=== PATIENT | female | born 1965 | race Caucasian/White ===

== ENCOUNTER 2018-04-26 14:00 | Inpatient (IN) | payer OTHER, SELFPAY ==
[2018-04-26 14:53] LABS: Hemoglobin 16.3 g/dL (12.0-16.0); Mean Corpuscular HGB CONC 32.9 g/dL (32.0-36.0); Mean Corpuscular Hemoglobin 28.8 pg (27.0-31.0); Mean Corpuscular Volume 87.5 fL (78.0-98.0); Mean Platelet Volume 11.5 fL (7.4-10.4); Platelet Count 287 thou/uL (130-400); RBC Distribution Width 14.1 % (11.5-14.5); Red Blood Cell (RBC) Count 5.66 mill/uL (4.20-5.40)
[2018-04-26 15:07] LABS: Lymphocytes 12 % (21-51); MDiff Complete? YES; Monocytes 4 % (0-10); Neutrophil 84 % (42-75); PLT Morphology Comment Appears Adequate; RBC Morphology Normal; White Blood Cell (WBC) Count 19.2 thou/uL (4.8-10.8)
[2018-04-26 15:29] LABS: ALT (SGPT) 57 U/L (8-55); AST (SGOT) 36 U/L (5-34); Albumin 4.3 g/dL (3.5-5.0); Alkaline Phosphatase 286 U/L (40-150); Anion Gap 20 mmol/L (10-20); BUN (Urea Nitrogen) 16 mg/dL (9.8-20.1); Bilirubin, Total 1.5 mg/dL (0.2-1.2); Calc. Creatinine Clearance 0 mL/min (70-130); Calcium 10.3 mg/dL (7.8-10.44); Carbon Dioxide 23 mmol/L (22-29); Chloride 91 mmol/L (98-107); Estimated GFR-MDRD 53; Globulin 4.5 g/dL (2.4-3.5); Glucose 486 mg/dL (70-105); Lipase 9 U/L (8-78); Potassium 3.8 mmol/L (3.5-5.1); Protein, Total 8.8 g/dL (6.0-8.3); Sodium 130 mmol/L (136-145)
[2018-04-26] MEDS ORDERED: Morphine 2 MG/ML SYRINGE ONE ×2 (15:29→17:02)
[2018-04-26] MEDS ORDERED: Ondansetron PF 4 MG/2 ML Vial ONE (15:29)
[2018-04-26 16:17] LABS: Troponin I 0.012 ng/mL (< 0.028)
[2018-04-26] MEDS ORDERED: Iopamidol 370 76% 100 ML VIAL ONE (16:19)
[2018-04-26] MEDS ORDERED: Piperacillin/Tazobactam 4.5 GM VIAL ONE (17:02)
--- NOTE | 2018-04-26 17:13 | CT ---
CT OF THE ABDOMEN AND PELVIS WITH IV CONTRAST: 04/26/18 INDICATION: History of abdominal pain with history of ulcers, problems with gallbladder, problems with pancreas w ith aching burning abdominal pain since Sunday with nausea, vomiting, diarrhea. FINDINGS: There is severe fatty infiltration of the liver. There is prominent dilatation of the gallbladder wit h gallbladder wall thickening and pericholecystic inflammatory stranding. The pancreas appears within normal limits. The adrenal glands and kidneys appear within normal limits. Spleen is normal appearin g. No drainable fluid collection is evident. The bladder, rectum and perirectal soft tissues are unre markable. There are bilateral tubal ligation clips. There is a few scattered colonic diverticula. The re is a normal retrocecal appendix. No acute osseous abnormality is evident. IMPRESSION: 1. Findings highly suspicious for acute cholecystitis. Right upper quadrant ultrasound may be he lpful for additional evaluation. Recommend correlation with the clinical exam. 2. Severe fatty liver. 3. Colonic diverticulosis. POS: [facility]
[2018-04-26 17:21] LABS: Bilirubin Negative (Negative); Blood, Urine Trace (Negative); Clarity CLEAR (Clear); Glucose, Urine (Dipstick) >=1000 mg/dL (Negative); Leukocyte Negative (Negative); Nitrite Negative (Negative); Protein, Urine (Dipstick) 30 mg/dL (Neg-Trace); Urobilinogen 0.2 mg/dL (0.2-1.0); pH, Urine 5.5 (5.0-9.0)
[2018-04-26 17:22] LABS: Specific Gravity, Urine 1.044 (1.002-1.036)
[2018-04-26 17:23] LABS: Bacteria/HPF None Seen HPF (None Seen); Hyaline Casts/LPF 0-3 HYALINE CAST LPF (0-3 Hyaline); Pathc Cast-AUWi Flag 0.14 (0-2.49); RBC/HPF 0-3 HPF (0-3); Squamous Epithelial 0-3 HPF (0-3); WBC/HPF 21-50 HPF (0-3)
[2018-04-26] MEDS ORDERED: hydrALAZINE 20 MG/ML VIAL SLOW IVP PRN (18:36)
[2018-04-26] MEDS ORDERED: Dextrose 5% in Water 1,000 ML IV PRN (18:37)
[2018-04-26] MEDS ORDERED: Dextrose 50% Abboject 50 ML SYRINGE SLOW IVP PRN (18:37)
[2018-04-26] MEDS ORDERED: Morphine 2 MG/ML SYRINGE SLOW IVP PRN (18:39)
[2018-04-26] MEDS ORDERED: Senokot S 8.6-50 MG TAB PO PRN (19:41)
[2018-04-26] MEDS ORDERED: Bisacodyl 5 MG TAB PO PRN (19:41)
[2018-04-26] MEDS ORDERED: Acetaminophen 325 MG TAB PO PRN (19:41)
[2018-04-26 20:02] LABS: INR-International Normal Ratio 1.1; PTT 31.3 SEC (22.9-36.1); Prothrombin Time 14.2 SEC (12.0-14.7)
--- NOTE | 2018-04-26 20:06 | ULT ---
RIGHT UPPER QUADRANT ULTRASOUND: History: Right upper quadrant pain. Follow of from CT. Comparison: CT abdomen/pelvis 04-26-18. Technique: Multiplanar grayscale and color doppler images were obtained in a right upper quadrant abd ominal ultrasound. FINDINGS: The liver demonstrates increased echogenicity without focal lesions or intrahepatic ductal dilatation . The gallbladder contains multiple shadowing stones and is distended. There is slight gallbladder wa ll thickening and possibly a small amount of pericholecystic fluid. The common bile duct is normal me asuring 6 mm. The pancreas cannot be visualized. The right kidney is normal in echogenicity without hydronephrosis or calculus and measures 13.5 cm in length. IMPRESSION: 1. Cholelithiasis with finding suggesting acute cholecystitis. 2. Fatty liver. POS: [facility]
[2018-04-26] MEDS: Morphine 4 MG/ML VIAL SLOW IVP PRN (20:14)
[2018-04-26] MEDS: Pantoprazole 40 MG VIAL IVP SCH (20:14)
[2018-04-26] MEDS: Ondansetron PF 4 MG/2 ML Vial IVP PRN (20:15)
[2018-04-26] MEDS: Sodium Chloride 0.9% 1,000 ML IV SCH (20:16)
[2018-04-26] MEDS: HumaLOG 300 UNITS/3 ML VIAL SC PRN (21:28)
[2018-04-26 22:53] VITALS: BMI 34.8
[2018-04-27] MEDS: Piperacillin/Tazobactam 3.375 GM in Sodium Chloride 0.9% 100 ML IVPB SCH ×5 (00:23→23:59)
[2018-04-27] MEDS: Morphine 4 MG/ML VIAL SLOW IVP PRN ×4 (00:24→20:51)
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
[2018-04-27] MEDS: Sodium Chloride 0.9% 1,000 ML IV SCH ×3 (04:26→22:30)
[2018-04-27 05:54] LABS: #Lymphocytes 1.1 thou/uL (1.20-3.40); #Monocytes 1.1 thou/uL (0.11-0.59); %Basophils 0.2 % (0.0-1.0); %Eosinophils 0.3 % (0.0-10.0); %Lymphocytes 7.7 % (21.0-51.0); %Monocytes 7.5 % (0.0-10.0); %Neutrophils 84.3 % (42.0-75.0); Hemoglobin 13.7 g/dL (12.0-16.0); Mean Corpuscular HGB CONC 33.3 g/dL (32.0-36.0); Mean Corpuscular Hemoglobin 28.9 pg (27.0-31.0); Mean Corpuscular Volume 86.9 fL (78.0-98.0); Mean Platelet Volume 8.4 fL (7.4-10.4); Platelet Count 263 thou/uL (130-400); RBC Distribution Width 11.9 % (11.5-14.5); Red Blood Cell (RBC) Count 4.73 mill/uL (4.20-5.40); White Blood Cell (WBC) Count 14.3 thou/uL (4.8-10.8)
[2018-04-27 06:21] LABS: ALT (SGPT) 306 U/L (8-55); AST (SGOT) 503 U/L (5-34); Albumin 3.4 g/dL (3.5-5.0); Alkaline Phosphatase 496 U/L (40-150); Anion Gap 17 mmol/L (10-20); BUN (Urea Nitrogen) 15 mg/dL (9.8-20.1); Bilirubin, Total 5.6 mg/dL (0.2-1.2); Calc. Creatinine Clearance 128 mL/min (70-130); Calcium 9.2 mg/dL (7.8-10.44); Carbon Dioxide 21 mmol/L (22-29); Chloride 98 mmol/L (98-107); Estimated GFR-MDRD 86; Globulin 3.8 g/dL (2.4-3.5); Glucose 285 mg/dL (70-105); Potassium 3.4 mmol/L (3.5-5.1); Protein, Total 7.2 g/dL (6.0-8.3); Sodium 133 mmol/L (136-145)
[2018-04-27] MEDS: Pantoprazole 40 MG VIAL IVP SCH ×2 (08:24→20:51)
[2018-04-27] MEDS ORDERED: Lidocaine 1% PF 5 ML VIAL ONE (10:48)
[2018-04-27] MEDS ORDERED: PROPOFOL 200 MG/20 ML VIAL ONE (10:48)
[2018-04-27] MEDS ORDERED: Glycopyrrolate 0.2 MG/ML 5 ML SYRINGE ONE (10:48)
[2018-04-27] MEDS ORDERED: Ondansetron PF 4 MG/2 ML Vial ONE (10:48)
[2018-04-27] MEDS ORDERED: Dexamethasone 20 MG/5 ML VIAL ONE (10:48)
[2018-04-27] MEDS ORDERED: Iothalamate Meglumine 60% 50 ML VIAL FS ONE (12:36)
[2018-04-27] MEDS ORDERED: Indomethacin 50 MG SUPP ONE (12:42)
[2018-04-27] MEDS ORDERED: Fentanyl 100 MCG/2 ML VIAL ONE (12:45)
--- NOTE | 2018-04-27 12:46 | CON ---
DATE OF CONSULTATION: CHIEF COMPLAINT: Abdominal pain. HISTORY OF PRESENT ILLNESS: This is a 52-year-old woman with past medical history significant for irregular heartbeat, hypertension, diabetes mellitus type 2, and enlarged heart, presenting with abdominal pain, which has been ongoing for some time now. The patient does have multiple episodes of nausea and vomiting due to this abdominal pain and discomfort. She was told couple of years ago that she had gallbladder and now the patient has come into the emergency room due to elevated white count as well as liver function tests and an ultrasound confirming cholelithiasis with gallbladder wall thickening and pericholecystic fluid. At this point, we have been consulted to medically manage the patient before the patient could be able to have cholecystectomy. The patient denies any fever, nausea, or vomiting at this time, but endorses abdominal pain with movement. Of note, the patient states that she has a history of irregular heartbeat and she has been given medication, but she does not take her medications because she does not have an insurance to pay for her medications, so the patient has been very noncompliant. PAST MEDICAL HISTORY: Enlarged heart, hypertension, diabetes mellitus, and irregular heartbeat. PAST SURGICAL HISTORY: The patient has no significant past medical history except for tubal ligation. SOCIAL HISTORY: The patient quit smoking tobacco 20 years ago, but she states she smoked 2-1/2 pack a day. The patient denies any illicit drug use. The patient denies any alcohol use. The patient lives at home with 2 grandchildren. FAMILY HISTORY: Reviewed, noncontributory to this visit. MEDICATIONS: At present, does not take any medications. The patient states that she does not fill her medications when they are prescribed. ALLERGIES: NO KNOWN DRUG ALLERGIES. REVIEW OF SYSTEMS: Positive for abdominal pain, occasional nausea, otherwise as documented in the HPI. All other systems were reviewed and are negative. PHYSICAL EXAMINATION: VITAL SIGNS: Blood pressure is 132/72, pulse of 109, respiratory rate of 21, and O2 saturation is 96%. GENERAL: The patient is lying in bed, does not appear to be in any acute distress. The patient is able to speak in full sentences. HEENT: Normocephalic and atraumatic. Pupils are equally round and reactive to light. Extraocular movements are intact. No scleral icterus. No conjunctival pallor. Mucous membranes are moist. NECK: Trachea is midline. Full range of motion. Supple. No JVD. LUNGS: Clear to auscultation bilaterally. No wheezing, no rales, no rhonchi is appreciated. CARDIAC: Positive S1 and S2. Regular rate and rhythm. No murmurs. No gallops. No rubs appreciated. ABDOMEN: The patient has tenderness with palpation in the abdomen. The patient does have positive bowel sounds in all quadrants. No peritoneal signs. No rigidity. No guarding. EXTREMITIES: The patient has 5/5 upper extremity strength and 5/5 lower extremity strength with good pulses and no edema noted. NEURO: Cranial nerves II through XII grossly intact. No neurologic deficits noted. SKIN: Warm, dry, and intact. PSYCH: Normal affect. Alert and oriented x3. RADIOLOGIC DATA: A 12-lead EKG shows sinus tachycardia. CT of the abdomen and pelvis shows possible acute cholecystitis. LABORATORY DATA: WBCs 19.2, hemoglobin is 16.3, hematocrit is 49.6, and platelet count is 287. PT is 14.2, INR 1.1, and PTT 31.3. Sodium is 130, potassium is 3.8, chloride is 91, BUN is 16, creatinine is 1.07, glucose is 486, total bilirubin is 1.5, AST is 36, ALT is 57, and alkaline phosphatase is 286. Troponin is 0.012 and BNP 34. Urinalysis is negative. ASSESSMENT AND PLAN: 1. This is a 52-year-old female, who is noncompliant with her medications, presenting for abdominal pain secondary to acute cholecystitis. At this point, the patient has been scheduled to have surgery tomorrow. We have been consulted to medically clear the patient. Upon further questioning, the patient is able to climb two flight of stairs without any difficulties. Therefore, the patient can be able to have the surgery; however, the patient states that she has history of irregular heartbeat, which is a little concern as this patient is noncompliant with her medications, we have consulted Cardiology for cardiac clearance. The patient will benefit from getting an echo and if echo is normal and Cardiology clears the patient, then the patient can be able to get the surgery. We will continue to monitor the patient closely. 2. Diabetes mellitus type 2, uncontrolled. At this point, we will continue the patient on insulin sliding scale and we will try and get the patient's blood sugars between 140 to 180. 3. History of hypertension, well controlled. The patient does not take her medications. We will control the patient's blood pressure in the hospital. 4. Deep venous thrombosis/gastrointestinal prophylaxis. Job ID: [id number]
[2018-04-27] MEDS ORDERED: Promethazine HCl 25 MG/ML VIAL IM PRN (13:32)
[2018-04-27] MEDS ORDERED: Ondansetron HCl/PF 4 MG/2 ML Vial IVP PRN (13:32)
[2018-04-27] MEDS ORDERED: Promethazine HCl 25 MG/ML VIAL SLOW IVP PRN (13:32)
--- NOTE | 2018-04-27 13:32 | PDOC.PN ---
- Subjective Encounter Start Date: 04/27/18 Encounter Start Time: 13:28 Subjective: sleepy S/P ERCP - Objective MAR Reviewed: Yes Vital Signs & Weight: Vital Signs (12 hours) Temp Pulse Resp BP Pulse Ox 04/27/18 08:00 94 L 04/27/18 07:48 98.5 F 89 22 H 130/74 94 L 04/27/18 03:42 98.5 F 93 16 145/80 H 94 L Weight Weight 196 lb 11.2 oz I&O: 04/26/18 04/27/18 04/28/18 06:59 06:59 06:59 Intake Total 1440 Balance 1440 Result Diagrams: 04/27/18 04:55 04/27/18 04:55 Additional Labs: Accuchecks 04/27/18 04/27/18 04/26/18 06:21 01:22 23:14 POC Glucose 268 H 293 H 319 H 04/26/18 19:47 POC Glucose 346 H Phys Exam - Physical Examination HEENT: PERRLA, moist MMs, sclera anicteric, TM's clear, oral pharynx no lesions , 2+ tonsils Neck: no nodes, no JVD, supple, full ROM Respiratory: no wheezing, no rales, no rhonchi Cardiovascular: RRR, no significant murmur, no rub Gastrointestinal: soft, non-tender, positive bowel sounds Musculoskeletal: no edema, pulses present Neurological: non-focal, normal sensation, moves all 4 limbs Dx/Plan (1) Cholecystitis Code(s): K81.9 - CHOLECYSTITIS, UNSPECIFIED Status: Acute Comment: S/P ERCP , plans for cholecystectomy in am (2) Diabetes Code(s): E11.9 - TYPE 2 DIABETES MELLITUS WITHOUT COMPLICATIONS Status: Chronic Qualifiers: Diabetes mellitus type: 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
[2018-04-27] MEDS ORDERED: Dextrose 5% in Water 1,000 ML IV PRN (13:34)
[2018-04-27] MEDS ORDERED: Dextrose 50% Abboject 50 ML SYRINGE SLOW IVP PRN (13:34)
[2018-04-27] MEDS ORDERED: HumaLOG 300 UNITS/3 ML VIAL SC PRN (13:34)
--- NOTE | 2018-04-27 16:02 | CON ---
DATE OF CONSULTATION: HISTORY OF PRESENT ILLNESS: The patient is a 52-year-old female, who was in her normal state of health until few days prior to admission when she developed significant epigastric and right upper quadrant pain. She has had similar pains before and has been seen in [place], [place] and diagnosed with some pancreatic disorder, but nothing was done for the patient. She has had some nausea and vomiting. She reports a 25-pound weight loss. She notes her urine has been dark. She reports she has had an ulcer since the age of 12. PAST MEDICAL HISTORY: Includes hypertension, diabetes. PAST SURGICAL HISTORY: She denies any prior surgery. SOCIAL HISTORY: She is a former smoker. Does not drink. FAMILY HISTORY: Negative of GI or liver disease. MEDICATIONS: There is a mention in the medical record about; 1. Metformin. 2. Tramadol. 3. Ibuprofen. 4. Acetaminophen. However, she denies any medications. ALLERGIES: NO KNOWN ALLERGIES. REVIEW OF SYSTEMS: Ten systems reviewed and were negative except for above. PHYSICAL EXAMINATION: GENERAL: Shows an overweight female, in no acute distress. VITAL SIGNS: Temperature 98.5, pulse 89, respiratory rate 22, blood pressure 130/74. HEENT: Poor dentition. NECK: Supple. CHEST: Clear. CARDIOVASCULAR: Regular rate and rhythm. ABDOMEN: Soft, tender in the right upper quadrant without rebound or guarding. Bowel sounds are present, normoactive. RECTAL: Deferred. EXTREMITIES: Normal. LABORATORY DATA: Laboratories show sodium 133, potassium 3.4, CO2 21, glucose 285, total bilirubin 5.6, AST of 503, ALT of 306, alk phos of 496, lipase of 9. White blood cell count 14.3, hemoglobin 13.7, hematocrit 41.1. Abdominal ultrasound showed cholelithiasis and possible cholecystitis, fatty liver. Abdominal and pelvic CT shows acute cholecystitis, severe fatty liver, and diverticulosis. ASSESSMENT: 1. Acute cholecystitis. 2. Probable choledocholithiasis. RECOMMENDATIONS: 1. ERCP. 2. Laparoscopic cholecystectomy. 3. The risks and potential complications of ERCP were discussed with the patient including pancreatitis, perforation, bleeding, and . The patient understands these risks and alternatives and wishes to proceed. Job ID: [id number]
[2018-04-27] MEDS: HumaLOG 300 UNITS/3 ML VIAL SC PRN (16:29)
[2018-04-27] MEDS: Ondansetron PF 4 MG/2 ML Vial IVP PRN (21:02)
[2018-04-28] MEDS: Morphine 4 MG/ML VIAL SLOW IVP PRN ×2 (01:40→05:05)
[2018-04-28] MEDS: Sodium Chloride 0.9% 1,000 ML IV SCH ×3 (05:08→22:45)
[2018-04-28] MEDS: Piperacillin/Tazobactam 3.375 GM in Sodium Chloride 0.9% 100 ML IVPB SCH ×4 (05:08→23:55)
[2018-04-28] MEDS ORDERED: Fentanyl 100 MCG/2 ML VIAL ONE ×3 (06:55→12:24)
[2018-04-28 07:06] LABS: ALT (SGPT) 513 U/L (8-55); AST (SGOT) 607 U/L (5-34); Albumin 3.2 g/dL (3.5-5.0); Alkaline Phosphatase 529 U/L (40-150); Bilirubin, Direct 3.8 mg/dL (0.1-0.3); Bilirubin, Total 4.7 mg/dL (0.2-1.2); Protein, Total 6.8 g/dL (6.0-8.3)
[2018-04-28] MEDS: Ondansetron PF 4 MG/2 ML Vial IVP PRN (07:09)
[2018-04-28] MEDS ORDERED: Iothalamate Meglumine 60% 50 ML VIAL FS ONE (07:34)
[2018-04-28] MEDS ORDERED: Bupivacaine/Epinephrine 0.25% 30 ML VIAL ONE (07:34)
[2018-04-28] MEDS: Pantoprazole 40 MG VIAL IVP SCH ×2 (08:28→19:53)
[2018-04-28] MEDS ORDERED: Ondansetron HCl/PF 4 MG/2 ML Vial IVP PRN (10:26)
[2018-04-28] MEDS ORDERED: Promethazine HCl 25 MG/ML VIAL SLOW IVP PRN (10:26)
[2018-04-28] MEDS ORDERED: Promethazine HCl 25 MG/ML VIAL IM PRN (10:26)
[2018-04-28] MEDS ORDERED: Metoprolol Tartrate 5 MG/5 ML VIAL ONE (10:53)
[2018-04-28] MEDS ORDERED: PROPOFOL 200 MG/20 ML VIAL ONE (10:53)
[2018-04-28] MEDS ORDERED: Ondansetron PF 4 MG/2 ML Vial ONE (10:53)
[2018-04-28] MEDS ORDERED: Dexamethasone 20 MG/5 ML VIAL ONE (10:53)
[2018-04-28] MEDS ORDERED: Lidocaine 1% PF 5 ML VIAL ONE (10:53)
[2018-04-28] MEDS ORDERED: Glycopyrrolate 0.2 MG/ML 5 ML SYRINGE ONE (10:53)
[2018-04-28] MEDS ORDERED: HYDROcodone/Acetaminophen 5/325 mg Tablet PO PRN (12:27)
--- NOTE | 2018-04-28 12:33 | PDOC.PN ---
- Subjective Encounter Start Date: 04/28/18 Encounter Start Time: 12:32 Subjective: Awaiting Lap bari - Objective full resuscitation MAR Reviewed: Yes Vital Signs & Weight: Vital Signs (12 hours) Temp Pulse Resp BP Pulse Ox 04/28/18 07:07 98.3 F 77 20 143/77 H 94 L 04/28/18 03:00 98.3 F 71 16 146/81 H 98 Weight Admit Weight 196 lb 11.2 oz Weight 196 lb 11.2 oz I&O: 04/27/18 04/28/18 04/29/18 06:59 06:59 06:59 Intake Total 2640 Balance 2640 Result Diagrams: 04/27/18 04:55 04/27/18 04:55 Additional Labs: Accuchecks 04/28/18 04/28/18 04/27/18 08:01 05:36 21:07 POC Glucose 231 H 251 H 304 H 04/27/18 15:37 POC Glucose 248 H Phys Exam - Physical Examination HEENT: PERRLA, moist MMs, sclera anicteric, TM's clear, oral pharynx no lesions , 2+ tonsils Neck: no nodes, no JVD, supple, full ROM Respiratory: no wheezing, no rales, no rhonchi, clear to auscultation bilateral Cardiovascular: RRR, no significant murmur Gastrointestinal: soft, no distention mildly tender right upper quadrant Musculoskeletal: no edema, pulses present Neurological: non-focal, normal sensation, moves all 4 limbs Skin: no rash, normal turgor, cap refill <2 seconds Dx/Plan (1) Cholecystitis Code(s): K81.9 - CHOLECYSTITIS, UNSPECIFIED Status: Acute Comment: S/P ERCP , plans for cholecystectomy today (2) Diabetes Code(s): E11.9 - TYPE 2 DIABETES MELLITUS WITHOUT COMPLICATIONS Status: Chronic Qualifiers: Diabetes mellitus type: type 2 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 ERCP WNL. - Plan cont current plan of care, continue antibiotics * .
[2018-04-28] MEDS ORDERED: Dextrose 5% in Water 1,000 ML IV PRN (12:35)
[2018-04-28] MEDS ORDERED: Dextrose 50% Abboject 50 ML SYRINGE SLOW IVP PRN (12:35)
--- NOTE | 2018-04-28 13:58 | RAD ---
CHOLANGIOGRAM INTRAOPERATIVE TWO VIEWS: 04/28/2018 HISTORY: A 52-year-old female undergoing a cholecystectomy for cholelithiasis and acute cholecystitis. FINDINGS: Contrast injection into cystic duct stump. The common bile duct is mildly dilated. The common hepat ic duct is borderline dilated, with a questionable ill defined filling defect. The left and right he patic ducts are mildly dilated. There is contrast material in the duodenum. IMPRESSION: 1. Mild ectasia of the biliary tree. 2. Questionable moderate sized filling defect in the superior portion of the common hepatic duct. U ncertain whether this is artifact or real. POS: [facility]
[2018-04-28] MEDS: HYDROcodone/Acetaminophen 5/325 mg Tablet PO PRN ×2 (14:10→23:55)
[2018-04-28] MEDS: HumaLOG 300 UNITS/3 ML VIAL SC PRN ×3 (14:20→20:56)
[2018-04-28] MEDS: Morphine 2 MG/ML SYRINGE SLOW IVP PRN ×2 (16:30→19:57)
[2018-04-28] MEDS: Carvedilol 3.125 MG TAB PO SCH (17:35)
[2018-04-29] MEDS: Sodium Chloride 0.9% 1,000 ML IV SCH ×4 (00:07→16:13)
[2018-04-29] MEDS: HYDROcodone/Acetaminophen 5/325 mg Tablet PO PRN ×5 (04:07→20:28)
[2018-04-29] MEDS: Piperacillin/Tazobactam 3.375 GM in Sodium Chloride 0.9% 100 ML IVPB SCH ×3 (06:15→16:16)
[2018-04-29] MEDS: HumaLOG 300 UNITS/3 ML VIAL SC PRN ×3 (06:17→16:18)
[2018-04-29 06:49] LABS: ALT (SGPT) 404 U/L (8-55); AST (SGOT) 269 U/L (5-34); Albumin 2.7 g/dL (3.5-5.0); Alkaline Phosphatase 436 U/L (40-150); Anion Gap 13 mmol/L (10-20); BUN (Urea Nitrogen) 13 mg/dL (9.8-20.1); Bilirubin, Total 1.8 mg/dL (0.2-1.2); Calc. Creatinine Clearance 144 mL/min (70-130); Calcium 8.3 mg/dL (7.8-10.44); Carbon Dioxide 21 mmol/L (22-29); Chloride 103 mmol/L (98-107); Estimated GFR-MDRD Greater than 90; Globulin 3.2 g/dL (2.4-3.5); Glucose 254 mg/dL (70-105); Lipase 14 U/L (8-78); Potassium 3.7 mmol/L (3.5-5.1); Protein, Total 5.9 g/dL (6.0-8.3); Sodium 133 mmol/L (136-145)
--- NOTE | 2018-04-29 07:48 | OP ---
DATE OF PROCEDURE: 04/27/2018 PREOPERATIVE DIAGNOSIS: Abnormal liver function tests with acute cholecystitis, suspicious for choledocholithiasis. DESCRIPTION OF PROCEDURE: After informed consent was obtained, the patient was placed in left lateral decubitus position. Anesthesia was administered by the Anesthesia Department. Side-viewing endoscope was inserted into esophagus under direct visualization with ease and passed to the second portion of the duodenum with ease. Second portion of the duodenum was normal. No mucosal abnormalities were noted. The Tapered-tip cannula was inserted into the common bile duct and cholangiogram revealed no obvious filling defects. A sphincterotomy was performed and a hedrick of very old dark bile was noted. The duct was swept with a 12 mm balloon. ASSESSMENT: Probable choledocholithiasis - no obvious stones or filling defects were noted, but there was a large amount of old bile that was seen coming from the duct after sphincterotomy. RECOMMENDATIONS: 1. Repeat LFTs. 2. Proceed with cholecystectomy tomorrow. Job ID: [id number]
--- NOTE | 2018-04-29 07:50 | PRG ---
DATE OF SERVICE: 04/28/2018 SUBJECTIVE: The patient is complaining of pain. Had her surgery this morning. OBJECTIVE: VITAL SIGNS: Temperature is 98.6, pulse 91, respiratory rate 20, blood pressure 152/86. CHEST: Clear. CARDIOVASCULAR: Regular rate and rhythm. ABDOMEN: Tender. LABORATORY DATA: Laboratory shows a total bilirubin for 4.7, AST of 607, ALT of 513, alkaline phosphatase of 529. ASSESSMENT: Obstructive jaundice - I am not sure if this was ampullary stenosis or retained stone. After sphincterotomy, she had a large amount of dark bowel; however, LFTs have not improved. RECOMMENDATIONS: Recheck LFTs in a.m. Job ID: [id number]
--- NOTE | 2018-04-29 07:51 | CON ---
DATE OF CONSULTATION: HISTORY OF PRESENT ILLNESS: Jasmin Gore is a 52-year-old white female admitted with acute cholecystitis and has undergone laparoscopic cholecystectomy today. She was admitted here in April of 2011 with bronchitis and irregular heart beat. She was found to have a nonischemic cardiomyopathy with ejection fraction of approximately 25%. She underwent cardiac catheterization by Dr. Michel and had normal coronary arteries. EF at [facility] was 15 to 20%. She was discharged on carvedilol 6.25 b.i.d., lisinopril 10 mg b.i.d. She states that she took the medicines until they ran out and never did go back to see Dr. Michel for followup. She has never had any reassessment of her cardiac status. She denies any chest discomfort except under stress. She has never had any exertional chest discomfort. She does have dyspnea on exertion after walking 1 mile. PAST MEDICAL HISTORY: Hypertension, diabetes, obesity, nonischemic cardiomyopathy without followup. PAST SURGICAL HISTORY: Tubal ligation and laparoscopic cholecystectomy. SOCIAL HISTORY: She smoked about 25 years ago and also stopped drinking around the same time. FAMILY HISTORY: Negative for coronary artery disease. HOME MEDICATIONS: 1. Metformin 500 b.i.d. 2. Tramadol 50 q.i.d. p.r.n. 3. Ibuprofen 800 mg t.i.d. 4. She is not on any cardiac medications. ALLERGIES: NONE. REVIEW OF SYSTEMS: A 12-system point review of systems are otherwise unremarkable. PHYSICAL EXAMINATION: VITAL SIGNS: Blood pressure 152/86, pulse of 91. HEENT: PERRL. NECK: Supple. CHEST: Clear. CARDIAC: S1 and S2 are normal without any S3, S4, or murmurs. ABDOMEN: Obese. Normal bowel sounds. Mild right upper quadrant tenderness. EXTREMITIES: Revealed no clubbing, cyanosis, or edema. NEUROLOGIC: Grossly intact. SKIN: Warm and dry. LABORATORY DATA: EKG revealed sinus tachycardia with a rate of 104 per minute with left ventricular hypertrophy, nonspecific ST and T-wave changes. Hemoglobin 13.7, hematocrit 41.1, white count 14,600, platelets 263,000. INR 1.1. Sodium 133, potassium 3.4, chloride 98, carbon dioxide 21, BUN 15, creatinine is 0.71, glucose 285. Liver function tests are elevated. IMPRESSION: 1. Status post laparoscopic cholecystectomy. 2. History of nonischemic cardiomyopathy in April 2011 without followup or medications since that time. 3. Hypertension. 4. Diabetes. 5. Former smoker. PLAN: I continued to wait for echocardiogram to be performed to assess her left ventricular function. In the meantime, with her current blood pressures, I will start low-dose carvedilol. Job ID: [id number] MTDD
[2018-04-29] MEDS: Carvedilol 3.125 MG TAB PO SCH ×2 (08:00→16:15)
[2018-04-29] MEDS: Pantoprazole 40 MG VIAL IVP SCH ×2 (08:00→20:28)
[2018-04-29 08:08] LABS: #Lymphocytes 1.4 thou/uL (1.20-3.40); #Monocytes 0.5 thou/uL (0.11-0.59); %Basophils 0.1 % (0.0-1.0); %Eosinophils 0.5 % (0.0-10.0); %Lymphocytes 15.9 % (21.0-51.0); %Monocytes 5.6 % (0.0-10.0); Hemoglobin 11.2 g/dL (12.0-16.0); Mean Corpuscular HGB CONC 34.4 g/dL (32.0-36.0); Mean Corpuscular Hemoglobin 30.4 pg (27.0-31.0); Mean Corpuscular Volume 88.4 fL (78.0-98.0); Mean Platelet Volume 8.5 fL (7.4-10.4); Platelet Count 248 thou/uL (130-400); RBC Distribution Width 11.9 % (11.5-14.5); Red Blood Cell (RBC) Count 3.69 mill/uL (4.20-5.40)
[2018-04-29] MEDS ORDERED: HumaLOG 300 UNITS/3 ML VIAL SC PRN (08:46)
--- NOTE | 2018-04-29 11:16 | PRG ---
DATE OF SERVICE: 04/29/2018 SUBJECTIVE: The patient is feeling better compared to yesterday. She is still sore. She still does not have much of an appetite. OBJECTIVE: VITAL SIGNS: Temperature 98.0, pulse 83, respiratory rate 18, and blood pressure 143/79. HEENT: Unremarkable. NECK: Supple. CHEST: Clear. CARDIOVASCULAR: Regular rate and rhythm without murmurs or gallops. ABDOMEN: Soft, diffusely tender. LABORATORY DATA: Laboratory shows a total bilirubin 1.8, AST 269, ALT of 404, alkaline phosphatase of 436. ASSESSMENT: Obstructive jaundice - LFTs improving. RECOMMENDATIONS: 1. Stable from GI standpoint. 2. Recheck LFTs tomorrow, or if the patient is going home, recheck them as an outpatient to document normalization. Job ID: [id number]
[2018-04-29] MEDS: Insulin Glargine 10 UNITS in Pre-Filled Syringe 1 EACH SC SCH (11:58)
--- NOTE | 2018-04-29 20:02 | PDOC.PN ---
- Subjective Encounter Start Date: 04/29/18 Encounter Start Time: 13:00 Patient seen and examined for med mngt. No new complaints. No overnight events - Objective MAR Reviewed: Yes Vital Signs & Weight: Vital Signs (12 hours) Temp Pulse Resp BP Pulse Ox 04/29/18 15:38 97.6 F 79 18 144/84 H 93 L 04/29/18 11:07 97.9 F 70 18 139/83 93 L Weight Admit Weight 196 lb 11.2 oz Weight 196 lb 11.2 oz I&O: 04/28/18 04/29/18 04/30/18 06:59 06:59 06:59 Intake Total 2640 1600 2380 Output Total 80 50 Balance 2640 1520 2330 Result Diagrams: 04/29/18 07:48 04/29/18 06:03 Additional Labs: Accuchecks 04/29/18 04/29/18 04/29/18 15:38 11:07 06:17 POC Glucose 300 H 294 H 229 H 04/28/18 20:57 POC Glucose 371 H Phys Exam - Physical Examination Constitutional: NAD Respiratory: no wheezing, no rhonchi Cardiovascular: RRR, no rub Gastrointestinal: soft, positive bowel sounds Musculoskeletal: no edema Neurological: moves all 4 limbs Dx/Plan (1) DM2 (diabetes mellitus, type 2) Status: Chronic (2) Obesity (BMI 30.0-34.9) Code(s): E66.9 - OBESITY, UNSPECIFIED Status: Chronic (3) Medical non-compliance Code(s): Z91.19 - PATIENT'S NONCOMPLIANCE W OTH MEDICAL TREATMENT AND REGIMEN Status: Chronic (4) Abnormal LFTs (liver function tests) Code(s): R94.5 - ABNORMAL RESULTS OF LIVER FUNCTION STUDIES Status: Chronic (5) HTN (hypertension) Code(s): I10 - ESSENTIAL (PRIMARY) HYPERTENSION Status: Chronic (6) Nonischemic cardiomyopathy Code(s): I42.8 - OTHER CARDIOMYOPATHIES Status: Chronic - Plan DVT proph w/SCDs * Cont sliding scale * Add Lantus * 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 * A1c in AM * Cont ACHS sugar check Review of Systems - Review of Systems Respiratory: negative: Cough, Dry, Shortness of Breath, Hemoptysis, SOB with Excertion, Pleuritic Pain, Sputum, Wheezing Cardiovascular: negative: chest pain, palpitations, orthopnea, paroxysmal nocturnal dyspnea, edema, light headedness, other - Medications/Allergies Allergies/Adverse Reactions: Allergies Allergy/AdvReac Type Severity Reaction Status Date / Time No Known Allergies Allergy Verified 05/25/15 20:39 Medications: Current Medications Acetaminophen (Tylenol) 650 mg PO Q4H PRN PRN Reason: Headache/Fever/Mild Pain (1-3) Hydrocodone Bitart/Acetaminophen ([place] 5/325) 1 tab PO Q4H PRN PRN Reason: PAIN SCALE 1-5 Hydrocodone Bitart/Acetaminophen ([place] 5/325) 2 tab PO Q4H PRN PRN Reason: PAIN SCALE 6-10 Last Admin: 04/29/18 16:26 Dose: 2 tab Bisacodyl (Dulcolax) 10 mg PO DAILYPRN PRN PRN Reason: Constipation Carvedilol (Coreg) 3.125 mg PO BID-[facility] Last Admin: 04/29/18 16:15 Dose: 3.125 mg Dextrose/Water (Dextrose 50%) 25 gm SLOW IVP PRN PRN PRN Reason: Hypoglycemia Glucagon (Glucagon) 1 mg IM PRN PRN PRN Reason: Hypoglycemia Hydralazine HCl (Apresoline) 10 mg SLOW IVP Q15MIN PRN PRN Reason: Hypertension Piperacillin Sod/Tazobactam (Sod 3.375 gm/ Sodium Chloride) 100 mls @ 200 mls/ hr IVPB Q6HR [facility] Last Admin: 04/29/18 16:16 Dose: 100 mls Sodium Chloride (Normal Saline 0.9%) 1,000 mls @ 120 mls/hr IV .Q8H20M [facility] Last Admin: 04/29/18 16:13 Dose: 1,000 mls Dextrose/Water (D5w) 1,000 mls @ 0 mls/hr IV .Q0M PRN PRN Reason: Hypoglycemia Insulin Glargine 10 units/ (Miscellaneous Medication) 0.1 mls @ 0 mls/hr [facility] Last Admin: 04/29/18 11:58 Dose: 0.1 mls Insulin Human Lispro (Humalog) 0 units SC .MODERATE SLIDING SC PRN PRN Reason: Moderate Correctional Scale Last Admin: 04/29/18 16:18 Dose: 6 unit Insulin Human Lispro (Humalog) 0 units SC .BEDTIME SLIDING SC PRN PRN Reason: Bedtime Correctional Scale Morphine Sulfate (Morphine) 2 mg SLOW IVP Q2H PRN PRN Reason: PAIN IF UNABLE TO TAKE PO Last Admin: 04/28/18 19:57 Dose: 2 mg Ondansetron HCl (Zofran) 4 mg IVP Q6H PRN PRN Reason: Nausea/Vomiting Last Admin: 04/28/18 07:09 Dose: 4 mg Pantoprazole Sodium (Protonix) 40 mg IVP Q12HR [facility] Last Admin: 04/29/18 08:00 Dose: 40 mg Senna/Docusate Sodium (Senokot S) 2 tab PO BID PRN PRN Reason: Constipation Sodium Chloride (Flush - Normal Saline) 10 ml IVF Q12HR [facility] Last Admin: 04/29/18 08:00 Dose: 10 ml Sodium Chloride (Flush - Normal Saline) 10 ml IVF PRN PRN PRN Reason: Saline Flush
--- NOTE | 2018-04-29 21:15 | EKG ---
Test Reason : ROUTINE Blood Pressure : / mmHG Vent. Rate : 097 BPM Atrial Rate : 097 BPM P-R Int : 176 ms QRS Dur : 104 ms QT Int : 384 ms P-R-T Axes : 053 027 -13 degrees QTc Int : 487 ms Normal sinus rhythm Nonspecific ST and T wave abnormality Prolonged QT Abnormal ECG When compared with ECG of 09-MAY-2011 15:14, Premature ventricular complexes are no longer Present Nonspecific T wave abnormality, worse in Inferior leads Nonspecific T wave abnormality now evident in Lateral leads Confirmed by SNOW MALDONADO, STheresa ([id number]) on 04/29/2018 9:15:27 PM Referred By: Confirmed By:DR. Lemuel ADAMSON MD
[2018-04-30] MEDS: Piperacillin/Tazobactam 3.375 GM in Sodium Chloride 0.9% 100 ML IVPB SCH ×3 (00:57→15:44)
[2018-04-30] MEDS: Sodium Chloride 0.9% 1,000 ML IV SCH ×2 (01:27→15:43)
[2018-04-30] MEDS: HYDROcodone/Acetaminophen 5/325 mg Tablet PO PRN ×4 (01:27→17:01)
[2018-04-30] MEDS: HumaLOG 300 UNITS/3 ML VIAL SC PRN ×3 (06:58→17:04)
[2018-04-30] MEDS: metFORMIN 500 MG TAB PO SCH ×2 (07:40→17:02)
[2018-04-30] MEDS: Pantoprazole 40 MG VIAL IVP SCH (07:40)
[2018-04-30] MEDS: Carvedilol 3.125 MG TAB PO SCH ×2 (07:40→17:01)
[2018-04-30 08:12] LABS: Hemoglobin A1c 12.5 % (4.0-6.0)
[2018-04-30 08:16] LABS: ALT (SGPT) 243 U/L (8-55); AST (SGOT) 93 U/L (5-34); Albumin 2.7 g/dL (3.5-5.0); Alkaline Phosphatase 346 U/L (40-150); Anion Gap 12 mmol/L (10-20); BUN (Urea Nitrogen) 7 mg/dL (9.8-20.1); Bilirubin, Direct 0.9 mg/dL (0.1-0.3); Bilirubin, Total 1.2 mg/dL (0.2-1.2); Calc. Creatinine Clearance 162 mL/min (70-130); Calcium 8.1 mg/dL (7.8-10.44); Carbon Dioxide 25 mmol/L (22-29); Chloride 101 mmol/L (98-107); Estimated GFR-MDRD Greater than 90; Glucose 217 mg/dL (70-105); Sodium 135 mmol/L (136-145)
[2018-04-30 08:22] LABS: Potassium 2.9 mmol/L (3.5-5.1)
[2018-04-30] MEDS ORDERED: Potassium Chloride 20 MEQ TAB PO SCH ×2 (08:30→17:00)
[2018-04-30] MEDS ORDERED: Polyethylene Glycol 3350 17 GM Packet PO SCH (09:00)
[2018-04-30] MEDS ORDERED: Senokot S 8.6-50 MG TAB PO SCH (09:00)
[2018-04-30] MEDS ORDERED: Magnesium Sulfate 4 GM in Sodium Chloride 0.9% 250 ML 250 ML IVPB SCH (10:15)
[2018-04-30] MEDS: Insulin Glargine 10 UNITS in Pre-Filled Syringe 1 EACH SC SCH (11:05)
[2018-04-30 16:32] VITALS: BP 161/92; TEMP 97.6
--- NOTE | 2018-04-30 17:57 | PDOC.PN ---
- Subjective Encounter Start Date: 04/30/18 Encounter Start Time: 09:00 Patient seen and examined for med mngt No new complaints. No overnight events - Objective MAR Reviewed: Yes Vital Signs & Weight: Vital Signs (12 hours) Temp Pulse Resp BP BP Pulse Ox 04/30/18 15:30 97.6 F 76 18 161/92 H 95 04/30/18 11:24 98.2 F 70 18 179/109 H 93 L 04/30/18 08:03 74 179/100 H 04/30/18 08:00 95 04/30/18 07:36 98.2 F 72 18 179/100 H 93 L Weight Admit Weight 196 lb 11.2 oz Weight 196 lb 11.2 oz I&O: 04/29/18 04/30/18 05/01/18 06:59 06:59 06:59 Intake Total 1600 4320 Output Total 80 110 Balance 1520 4210 Result Diagrams: 04/29/18 07:48 04/30/18 07:39 Additional Labs: Accuchecks 04/30/18 04/30/18 04/30/18 15:31 11:23 06:09 POC Glucose 279 H 233 H 215 H 04/29/18 21:05 POC Glucose 234 H Phys Exam - Physical Examination Constitutional: NAD Respiratory: no wheezing, no rhonchi Cardiovascular: RRR, no rub Gastrointestinal: soft, non-tender, positive bowel sounds Musculoskeletal: no edema Dx/Plan (1) DM2 (diabetes mellitus, type 2) Status: Chronic (2) Obesity (BMI 30.0-34.9) Code(s): E66.9 - OBESITY, UNSPECIFIED Status: Chronic (3) Medical non-compliance Code(s): Z91.19 - PATIENT'S NONCOMPLIANCE W OTH MEDICAL TREATMENT AND REGIMEN Status: Chronic (4) Abnormal LFTs (liver function tests) Code(s): R94.5 - ABNORMAL RESULTS OF LIVER FUNCTION STUDIES (5) HTN (hypertension) Code(s): I10 - ESSENTIAL (PRIMARY) HYPERTENSION Status: Chronic (6) Hypomagnesemia Code(s): E83.42 - HYPOMAGNESEMIA Status: Acute (7) Hypokalemia Code(s): E87.6 - HYPOKALEMIA Status: Acute (8) Nonischemic cardiomyopathy Code(s): I42.8 - OTHER CARDIOMYOPATHIES Status: Chronic - Plan DVT proph w/SCDs * Replace electrolytes * Cont sliding scale * Cont Lantus * Cont Coreg * A1c 12.5 * Cont ACHS sugar check * counselled on diabetes Review of Systems - Review of Systems Respiratory: negative: Cough, Dry, Shortness of Breath, Hemoptysis, SOB with Excertion, Pleuritic Pain, Sputum, Wheezing Cardiovascular: negative: chest pain, palpitations, orthopnea, paroxysmal nocturnal dyspnea, edema, light headedness, other - Medications/Allergies Allergies/Adverse Reactions: Allergies Allergy/AdvReac Type Severity Reaction Status Date / Time No Known Allergies Allergy Verified 05/25/15 20:39 Medications: Current Medications Acetaminophen (Tylenol) 650 mg PO Q4H PRN PRN Reason: Headache/Fever/Mild Pain (1-3) Hydrocodone Bitart/Acetaminophen ([place] 5/325) 1 tab PO Q4H PRN PRN Reason: PAIN SCALE 1-5 Hydrocodone Bitart/Acetaminophen ([place] 5/325) 2 tab PO Q4H PRN PRN Reason: PAIN SCALE 6-10 Last Admin: 04/30/18 17:01 Dose: 2 tab Bisacodyl (Dulcolax) 10 mg PO DAILYPRN PRN PRN Reason: Constipation Carvedilol (Coreg) 3.125 mg PO BID-[facility] Last Admin: 04/30/18 17:01 Dose: 3.125 mg Dextrose/Water (Dextrose 50%) 25 gm SLOW IVP PRN PRN PRN Reason: Hypoglycemia Glucagon (Glucagon) 1 mg IM PRN PRN PRN Reason: Hypoglycemia Hydralazine HCl (Apresoline) 10 mg SLOW IVP Q15MIN PRN PRN Reason: Hypertension Last Admin: 04/30/18 08:03 Dose: 10 mg Piperacillin Sod/Tazobactam (Sod 3.375 gm/ Sodium Chloride) 100 mls @ 200 mls/ hr IVPB Q6HR [facility] Last Admin: 04/30/18 15:44 Dose: Not Given Sodium Chloride (Normal Saline 0.9%) 1,000 mls @ 120 mls/hr IV .Q8H20M [facility] Last Admin: 04/30/18 15:43 Dose: Not Given Dextrose/Water (D5w) 1,000 mls @ 0 mls/hr IV .Q0M PRN PRN Reason: Hypoglycemia Insulin Glargine 10 units/ (Miscellaneous Medication) 0.1 mls @ 0 mls/hr SC QAM [facility] Last Admin: 04/30/18 11:05 Dose: 0.1 mls Insulin Human Lispro (Humalog) 0 units SC .MODERATE SLIDING SC PRN PRN Reason: Moderate Correctional Scale Last Admin: 04/30/18 17:04 Dose: 6 unit Insulin Human Lispro (Humalog) 0 units SC .BEDTIME SLIDING SC PRN PRN Reason: Bedtime Correctional Scale Last Admin: 04/29/18 21:58 Dose: 2 unit [facility]) [facility] Last Admin: 04/30/18 17:02 Dose: 500 mg Morphine Sulfate (Morphine) 2 mg SLOW IVP Q2H PRN PRN Reason: PAIN IF UNABLE TO TAKE PO Last Admin: 04/28/18 19:57 Dose: 2 mg Ondansetron HCl (Zofran) 4 mg IVP Q6H PRN PRN Reason: Nausea/Vomiting Last Admin: 04/28/18 07:09 Dose: 4 mg Pantoprazole Sodium (Protonix) 40 mg IVP Q12HR [facility] Last Admin: 04/30/18 07:40 Dose: 40 mg Polyethylene Glycol (Miralax) 17 gm PO DAILY [facility] Last Admin: 04/30/18 07:40 Dose: 17 gm Potassium Chloride (K-Dur) 40 meq [facility] Stop: 04/30/18 23:59 Last Admin: 04/30/18 17:02 Dose: 40 meq Senna/Docusate Sodium (Senokot S) 2 tab PO BID PRN PRN Reason: Constipation Senna/Docusate Sodium (Senokot S) 1 tab PO BID [facility] Last Admin: 04/30/18 07:40 Dose: 1 tab Sodium Chloride (Flush - Normal Saline) 10 ml IVF Q12HR [facility] Last Admin: 04/30/18 07:41 Dose: 10 ml Sodium Chloride (Flush - Normal Saline) 10 ml IVF PRN PRN PRN Reason: Saline Flush
--- NOTE | 2018-05-02 12:04 | DIS ---
DATE OF ADMISSION: 04/26/2018 DATE OF DISCHARGE: 04/30/2018 FINAL DIAGNOSES: Cholelithiasis and severe cholecystitis. PROCEDURES: Endoscopic retrograde cholangiopancreatography on 04/27/2018 and laparoscopic cholecystectomy with intraoperative cholangiogram on 04/28/2018. HISTORY: Ms. Gore is a 52-year-old woman with multiple medical problems, who has not received any medical care in over a year. She has had intermittent upper abdominal pain and nausea, which was attributed to gallstones. She developed severe pain, which was not relenting, so she came to the emergency room and was found to have evidence of cholecystitis and cholelithiasis. Her LFTs were mildly elevated. She was admitted to the hospital and placed on antibiotics with plans for laparoscopic cholecystectomy the next morning; however, the following morning, her LFTs had risen abruptly. Her bilirubin had gone from 1.5 to 5.6. She was taken for ERCP and a large amount of thick black bile released from the common bile duct after sphincterotomy, but no definite obstructing stone was seen. The following day, her bilirubin had come down somewhat to 4.7. She was taken to the operating room and underwent laparoscopic cholecystectomy with intraoperative cholangiogram. No filling defects were seen, but the patient appeared to have extrinsic compression of the common hepatic duct by her severely inflamed gallbladder. She underwent laparoscopic cholecystectomy with drain placement and recovered well. Cardiology and Internal Medicine consults were carried out while she was in the hospital and medication recommendations were made. After her laparoscopic cholecystectomy, her bilirubin came down quickly to 1.8. The following morning, her NEHAL drainage was still somewhat high and her mobility was poor, so she was kept for another day. Her NEHAL drainage went down and the NEHAL output bilirubin level was equivalent to serum levels, so her NEHAL drain was removed and she was discharged home on postoperative day #2. She was instructed to avoid lifting more than 20 pounds for the next 2 weeks and to avoid fried, greasy, and fatty foods for the next 3 months. She was given contact information for [email or web address] and instructed to follow up there for management of her diabetes, hypertension and other medical problems. She is to follow up in the [facility] in 2 weeks' time. Medications were called in by the Hospitalist Service for her hypertension and diabetes. She was given prescriptions for pain medication for p.r.n. use. Job ID: [id number]
--- NOTE | 2018-05-06 09:57 | PDOC.OP ---
Operative Note - Operative Note Operative Note: PROCEDURE: Laparoscopic cholecystectomy with intraoperative cholangiogram SURGEON: Sean Wong M.D. ASST.: Devaughn Rothman MS 3 DATE OF PROCEDURE: 04/28/2018 PREOPERATIVE DIAGNOSIS: Cholelithiasis and cholecystitis, possible choledocholithiasis: POSTOPERATIVE DIAGNOSIS: Cholelithiasis and cholecystitis HISTORY: Patient with a long-standing history of intermittent upper abdominal pain who presented with an unremitting episode of pain lasting for several days. Ultrasound revealed gallstones and her LFTs were mildly elevated. The following day her LFTs had climbed further and an ERCP was performed with thick black bile draining from the bile duct after sphincterotomy but no obstructing stone found. Recommendation was made to proceed with laparoscopic cholecystectomy with intraoperative cholangiogram. FINDINGS: Dense omental adhesions completely obscuring the gallbladder. Severely fibrotic and thickened chronically inflamed gallbladder with adhesions to the duodenum and a large cystic duct. Intraoperative cholangiogram did not show filling defects but there did appear to be extrinsic compression of the common hepatic duct by the enlarged gallbladder. PROCEDURE IN DETAIL: After informed consent was obtained and appropriate preoperative antibiotics were administered, the patient was taken to the operating room and placed in the supine position and general endotracheal anesthesia was administered. The stomach was decompressed with an OG tube and the abdomen was prepped and draped in standard sterile fashion. Local anesthesia was infused to the skin and subcutaneous tissues at the umbilical level. A transverse skin incision was made. The fascia was elevated and a Veress needle was placed into the abdominal cavity without difficulty. Opening pressure was less than 5 and carbon dioxide gas easily insufflated to an intra- abdominal pressure of 15, which the patient tolerated well. The Veress needle was withdrawn and a [place] port advanced under direct vision. The abdominal cavity was carefully examined. There was no evidence of Veress needle or of trocar injury. Local anesthesia was infused to the skin and subcutaneous tissues at the epigastric, right upper quadrant, and right lateral abdominal sites and trocars were placed under direct vision of the laparoscope. The gallbladder was completely obscured by omental adhesions which appeared dense and chronic. These were taken down through their avascular plane using careful electrocautery as necessary. The gallbladder was noted to be severely thickened and inflamed and too distended to grasp. The gallbladder was aspirated with removal of over 100 mL of thick black bile from within the gallbladder. The fundus of the gallbladder was then able to be grasped and retracted superiorly. The remaining omental adhesions were dissected free of the gallbladder exposing the infundibulum. The gallbladder medial to this was adherent to the duodenum and these adhesions were carefully taken down sharply through the avascular plane avoiding any electrocautery in the region of the duodenum. The infundibulum was grasped and retracted laterally. The serosa was extremely thickened, inflamed, and fibrotic but was able to be carefully stripped inferiorly layer by layer at the level of the neck of the gallbladder using meticulous dissection, and successfully exposing the cystic duct and artery which were traced clearly to their insertion in the gallbladder. The cystic artery was located anterior to the cystic duct and was clipped and divided between clips to allow exposure of the cystic duct. The cystic duct was able to be carefully dissected free circumferentially using meticulous dissection through the thickened, inflamed and fibrotic tissue surrounding the duct. The duct was somewhat enlarged in size and was clipped at the level of the neck of the gallbladder. An incision was made in the cystic duct inferior to the clip and the cystic duct was palpated with thick black bile was extruded but no stones palpable. A cholangiogram catheter was introduced and placed into the cystic duct and secured. A cholangiogram was obtained which showed an adequate length of cystic duct. There was normal filling of the common bile duct with free flow of contrast into the duodenum. There was normal retrograde flow into the common hepatic duct beyond the level of the bifurcation without filling defects, but the segment of the common hepatic duct adjacent to the gallbladder appeared extrinsically compressed and there was some turbulent flow through this area. The cholangiogram catheter was removed and the cystic duct clipped below the incision in the cystic duct. The cystic duct was divided between this clip and the previously placed clip, and an Endoloop placed around the cystic duct stump inferior to the clip. The gallbladder was then dissected free of the gallbladder bed using hook electrocautery, with entry into the gallbladder at several points and a large amount of thick bile and multiple stones removed. Dissection was carried out very close to the gallbladder to avoid any injury to the common hepatic duct which appeared to be fairly close to the thickened fibrotic intrahepatic gallbladder on cholangiogram. Prior to complete removal of the gallbladder from the gallbladder bed, the area of the cystic duct and artery stumps was examined. The clips and Endoloop were in good position completely across these structures and there was no bleeding and no leakage of bile. The gallbladder was then placed into an EndoCatch bag and drawn out through the epigastric incision. The epigastric trocar was replaced and the operative site easily irrigated to clear. There was no significant bleeding and all spilled stones had been retrieved. Due to the severely inflamed nature of the gallbladder the decision was made to place Que to the gallbladder bed and this was applied under laparoscopic vision. A NEHAL drain was then placed through the epigastric trocar and drawn out through the right lateral trocar and placed into the right paracolic gutter with the tip in the gallbladder bed and secured to the skin at the exit site. The epigastric trocar was removed and the fascia closed under direct laparoscopic vision with a 0 Vicryl suture on a [place]Nee needle in a [id number] manner with excellent technical result. The right upper quadrant trocar was removed and hemostasis verified. Carbon dioxide gas was allowed to desufflate through the umbilical trocar which was then removed. The skin incisions were closed with 4-0 subcuticular Monocryl sutures and Dermabond dressings were placed. The patient was extubated and taken to the recovery room in good condition. There were no complications. ESTIMATED BLOOD LOSS: 100 ml. SPECIMEN : Gallbladder and contents.
== END 2018-04-30 18:26 | disposition home or self-care (01) | DRG 418 ==
LOC: ERS 14:00 → SURG B 18:53
PROVIDERS: ADMIT Surgery; ATTEND Surgery
PROC: 0F798ZZ Dilation of Common Bile Duct, Via Natural or Artificial Opening Endoscopic (ICD-10-PCS; 2018-04-27)
PROC: 0FT44ZZ Resection of Gallbladder, Percutaneous Endoscopic Approach (ICD-10-PCS; principal; 2018-04-28)
PROC: BF100ZZ Fluoroscopy of Bile Ducts using High Osmolar Contrast (ICD-10-PCS; 2018-04-28)
DX: K80.10 Calculus of gallbladder with chronic cholecystitis without obstruction (principal); I42.9 Cardiomyopathy, unspecified; E11.65 Type 2 diabetes mellitus with hyperglycemia; I10 Essential (primary) hypertension; E66.9 Obesity, unspecified; E83.42 Hypomagnesemia; E87.6 Hypokalemia; Z68.34 Body mass index [BMI] 34.0-34.9, adult; Z91.19 Patient's noncompliance with other medical treatment and regimen; Z87.891 Personal history of nicotine dependence
CPT/HCPCS: 36415; 36416; 47532; 74177; 76001; 76705; 80048; 80053; 80076; 81003; 81015; 82247; 83036; 83690; 83735; 83880; 84443; 84484; 85025; 85610; 85730; 88304; 93005; 93010; 93306; 96361; 96365; 96375; C9113; J0360; J1100; J1610; J2001; J2270; J2405; J2543; J2704; J3010; J3475; J7050; Q9961

== ENCOUNTER 2020-10-29 19:07 | Inpatient (IN) | payer OTHER, SELFPAY ==
[~2020-10-29 19:07] MED LIST: Iopamidol-370 76% 500 ML 1 ML ONE
[2020-10-29] MEDS ORDERED: Albuterol Sulfate 2.5 mg/3 ml Neb ONE (19:12)
[2020-10-29 19:31] LABS: Actual Bicarbonate (HCO3a) 20.3 mEq/L (22-28); Analyzer IN Cardio ER; Base Excess (BEa) -4.6 mEq/L (-2.0 to +3.0); Calcium, Ionized (arterial) 1.14 mmol/L (1.12-1.30); Carboxyhemoglobin (COHb) 0.4 gm% (0.0-3.0); Hemoglobin (Hb) 13.1 g/dL (12.0-16.0); O2 Tension (PaO2), arterial 78.6 mmHg (80.0-100.0); Potassium - ABG Lab 3.03 mmol/L (3.70-5.30); pH, Arterial 7.36 (7.35-7.45)
[2020-10-29 19:40] LABS: Puncture Site RRA
[2020-10-29 19:40] LABS: Hemoglobin 12.8 g/dL (12.0-16.0); Mean Corpuscular HGB CONC 34.2 g/dL (32.0-36.0); Mean Corpuscular Hemoglobin 28.9 pg (27.0-31.0); Mean Corpuscular Volume 84.6 fL (78.0-98.0); Mean Platelet Volume 7.8 fL (7.4-10.4); Platelet Count 464 thou/uL (130-400); RBC Distribution Width 13.7 % (11.5-14.5); Red Blood Cell (RBC) Count 4.43 mill/uL (4.20-5.40); White Blood Cell (WBC) Count 16.9 thou/uL (4.8-10.8)
[2020-10-29] MEDS ORDERED: Cefepime 2 GM VIAL ONE (19:40)
[2020-10-29 19:55] LABS: ALT (SGPT) 35 U/L (8-55); AST (SGOT) 52 U/L (5-34); Albumin 3.6 g/dL (3.5-5.0); Alkaline Phosphatase 139 U/L (40-110); Anion Gap 17 mmol/L (10-20); BUN (Urea Nitrogen) 12 mg/dL (9.8-20.1); Bilirubin, Total 0.7 mg/dL (0.2-1.2); Calc. Creatinine Clearance 0 mL/min (70-130); Calcium 9.1 mg/dL (7.8-10.44); Carbon Dioxide 17 mmol/L (22-29); Chloride 104 mmol/L (98-107); Globulin 3.7 g/dL (2.4-3.5); Glucose 352 mg/dL (70-105); Potassium 3.2 mmol/L (3.5-5.1); Protein, Total 7.3 g/dL (6.0-8.3); Sodium 135 mmol/L (136-145)
[2020-10-29 20:20] LABS: Band 2 % (5-11); Lymphocytes 36 % (21-51); MDiff Complete? YES; Monocytes 5 % (0-10); Neutrophil 56 % (42-75); Platelet Morphology Comment Appears Increased; Reactive Lymphocytes 1 % (0-10)
[2020-10-29] MEDS ORDERED: Vancomycin 1.5 GRAM/300 ML BAG 1.5 GM in Premix Bag 1 BAG IVPB SCH (20:30)
[2020-10-29 21:23] LABS: SARS-CoV-2 NAA Rapid Test Not Detected (NotDetected)
[2020-10-29] MEDS ORDERED: Morphine 2 MG/ML VIAL SLOW IVP PRN (21:49)
[2020-10-29] MEDS ORDERED: GUAIFENESIN SF SOLN 200 MG/10 ML UDCUP PO PRN (21:49)
[2020-10-29] MEDS ORDERED: hydrALAZINE 20 MG/ML VIAL SLOW IVP PRN (21:49)
[2020-10-29] MEDS ORDERED: Acetaminophen 325 MG TAB PO PRN (21:52)
[2020-10-29] MEDS ORDERED: Zolpidem Tartrate 5 MG TAB PO PRN (21:52)
[2020-10-29] MEDS ORDERED: Ondansetron PF 4 MG/2 ML Vial IVP PRN (21:52)
[2020-10-29] MEDS ORDERED: Bisacodyl 5 MG TAB PO PRN (21:52)
[2020-10-29] MEDS ORDERED: HYDROcodone/Acetaminophen 5/325 mg Tablet PO PRN (21:52)
[2020-10-29] MEDS ORDERED: Potassium Chloride 20 MEQ TAB PO SCH (22:00)
[2020-10-29] MEDS ORDERED: Magnesium 2 GM/50 ML 2 GM in Premix Bag 1 BAG IVPB SCH (22:00)
[2020-10-30] MEDS ORDERED: Ivermectin 3 MG TAB PO SCH (01:00)
[2020-10-30] MEDS ORDERED: Furosemide 40 MG/4 ML VIAL SLOW IVP SCH ×4 (01:00→14:00)
[2020-10-30] MEDS ORDERED: Furosemide 40 MG/4 ML VIAL ONE ×2 (01:15→07:56)
[2020-10-30] MEDS ORDERED: Potassium Chloride 20 MEQ TAB ONE ×2 (01:15→07:56)
[2020-10-30] MEDS ORDERED: Magnesium 2 GM/50 ML BAG (IN WATER) ONE (01:15)
[2020-10-30 01:33] VITALS: BMI 35.2
[2020-10-30 04:46] LABS: #Lymphocytes 0.6 thou/uL (1.20-3.40); #Monocytes 0.2 thou/uL (0.11-0.59); %Basophils 0.1 % (0.0-1.0); %Eosinophils 0.1 % (0.0-10.0); %Lymphocytes 4.3 % (21.0-51.0); %Monocytes 1.3 % (0.0-10.0); %Neutrophils 94.3 % (42.0-75.0); Hemoglobin 11.8 g/dL (12.0-16.0); Mean Corpuscular HGB CONC 33.9 g/dL (32.0-36.0); Mean Corpuscular Hemoglobin 27.9 pg (27.0-31.0); Mean Corpuscular Volume 82.4 fL (78.0-98.0); Mean Platelet Volume 7.5 fL (7.4-10.4); Platelet Count 352 thou/uL (130-400); RBC Distribution Width 13.8 % (11.5-14.5); Red Blood Cell (RBC) Count 4.21 mill/uL (4.20-5.40); White Blood Cell (WBC) Count 14.8 thou/uL (4.8-10.8)
[2020-10-30 05:05] LABS: ALT (SGPT) 36 U/L (8-55); AST (SGOT) 26 U/L (5-34); Albumin 3.6 g/dL (3.5-5.0); Alkaline Phosphatase 128 U/L (40-110); Anion Gap 17 mmol/L (10-20); BUN (Urea Nitrogen) 13 mg/dL (9.8-20.1); Bilirubin, Total 0.6 mg/dL (0.2-1.2); Calc. Creatinine Clearance 104 mL/min (70-130); Calcium 8.8 mg/dL (7.8-10.44); Carbon Dioxide 19 mmol/L (22-29); Chloride 100 mmol/L (98-107); Globulin 3.5 g/dL (2.4-3.5); Glucose 338 mg/dL (70-105); Magnesium 1.8 mg/dL (1.6-2.6); Potassium 4.2 mmol/L (3.5-5.1); Protein, Total 7.1 g/dL (6.0-8.3); Sodium 132 mmol/L (136-145)
[2020-10-30 05:07] LABS: Troponin I 0.218 ng/mL (< 0.028)
[2020-10-30] MEDS ORDERED: Sodium Chloride 0.9% 100 ML ONE (07:56)
[2020-10-30] MEDS ORDERED: Cefepime 1 GM VIAL ONE (07:56)
[2020-10-30] MEDS ORDERED: Famotidine 20 MG TAB ONE (07:56)
[2020-10-30] MEDS ORDERED: Dexamethasone 4 MG TAB ONE (07:56)
[2020-10-30] MEDS ORDERED: Dexamethasone 1 MG TAB PO SCH (08:00)
[2020-10-30] MEDS: Cefepime 1 GM in Sodium Chloride 0.9% 100 ML IVPB SCH ×2 (08:47→20:42)
[2020-10-30] MEDS: glyBURIDE 5 MG TAB PO SCH ×2 (08:47→16:06)
[2020-10-30] MEDS: metFORMIN 500 MG TAB PO SCH ×2 (08:47→16:06)
[2020-10-30] MEDS: Potassium Chloride 20 MEQ TAB PO SCH (08:48)
[2020-10-30] MEDS ORDERED: Famotidine 20 MG TAB PO SCH (09:00)
[2020-10-30] MEDS ORDERED: Zinc Sulfate 220 MG CAP PO SCH ×2 (09:00)
[2020-10-30] MEDS: HumaLOG 300 UNITS/3 ML VIAL SC PRN ×2 (11:43→17:58)
[2020-10-30] MEDS: Furosemide 40 MG/4 ML VIAL SLOW IVP SCH (13:26)
[2020-10-30] MEDS ORDERED: Acetaminophen 500 MG TAB PO PRN (13:27)
[2020-10-30] MEDS ORDERED: traMADol HCl 50 MG TAB PO PRN (13:27)
[2020-10-30] MEDS ORDERED: NPH, Human Insulin Isophane 300 UNIT/3 ML VIAL SC SCH (13:45)
[2020-10-30] MEDS ORDERED: Enoxaparin Sodium 40 MG/0.4 ML SYRINGE SC SCH (13:45)
[2020-10-30 14:09] LABS: Hemoglobin A1c 6.5 % (4.0-6.0)
[2020-10-30 14:28] LABS: Troponin I 0.202 ng/mL (< 0.028)
[2020-10-30] MEDS: Carvedilol 3.125 MG TAB PO SCH (20:42)
[2020-10-31] MEDS: Furosemide 40 MG/4 ML VIAL SLOW IVP SCH ×2 (05:42→15:16)
[2020-10-31 08:32] LABS: #Lymphocytes 3.2 thou/uL (1.20-3.40); #Monocytes 0.7 thou/uL (0.11-0.59); #Neutrophils 8.5 thou/uL (1.40-6.50); %Basophils 0.2 % (0.0-1.0); %Eosinophils 0.2 % (0.0-10.0); %Monocytes 5.6 % (0.0-10.0); %Neutrophils 68.1 % (42.0-75.0); Hemoglobin 12.3 g/dL (12.0-16.0); Mean Corpuscular HGB CONC 33.6 g/dL (32.0-36.0); Mean Corpuscular Hemoglobin 28.2 pg (27.0-31.0); Mean Platelet Volume 7.5 fL (7.4-10.4); Platelet Count 390 thou/uL (130-400); RBC Distribution Width 13.7 % (11.5-14.5); Red Blood Cell (RBC) Count 4.36 mill/uL (4.20-5.40); White Blood Cell (WBC) Count 12.4 thou/uL (4.8-10.8)
[2020-10-31] MEDS: Enoxaparin Sodium 40 MG/0.4 ML SYRINGE SC SCH (08:36)
[2020-10-31] MEDS: Potassium Chloride 20 MEQ TAB PO SCH (08:37)
[2020-10-31] MEDS: glyBURIDE 5 MG TAB PO SCH ×2 (08:37→17:35)
[2020-10-31] MEDS: Lisinopril 20 MG TAB PO SCH (08:37)
[2020-10-31] MEDS: Carvedilol 3.125 MG TAB PO SCH (08:37)
[2020-10-31] MEDS: NPH, Human Insulin Isophane 300 UNIT/3 ML VIAL SC SCH (08:37)
[2020-10-31] MEDS: metFORMIN 500 MG TAB PO SCH ×2 (08:37→17:35)
[2020-10-31 08:54] LABS: Anion Gap 16 mmol/L (10-20); BUN (Urea Nitrogen) 18 mg/dL (9.8-20.1); Calc. Creatinine Clearance 108 mL/min (70-130); Calcium 9.1 mg/dL (7.8-10.44); Carbon Dioxide 23 mmol/L (22-29); Chloride 101 mmol/L (98-107); Glucose 136 mg/dL (70-105); Potassium 3.4 mmol/L (3.5-5.1); Sodium 137 mmol/L (136-145)
[2020-10-31] MEDS ORDERED: Potassium Chloride 20 MEQ TAB PO SCH (18:30)
[2020-10-31] MEDS: Cefdinir 300 MG CAP PO SCH (20:20)
[2020-11-01 04:26] LABS: Hemoglobin 12.4 g/dL (12.0-16.0); Mean Corpuscular HGB CONC 33.9 g/dL (32.0-36.0); Mean Corpuscular Hemoglobin 28.6 pg (27.0-31.0); Mean Corpuscular Volume 84.3 fL (78.0-98.0); Mean Platelet Volume 7.5 fL (7.4-10.4); Platelet Count 392 thou/uL (130-400); RBC Distribution Width 13.9 % (11.5-14.5); Red Blood Cell (RBC) Count 4.35 mill/uL (4.20-5.40); White Blood Cell (WBC) Count 12.3 thou/uL (4.8-10.8)
[2020-11-01 04:30] LABS: Anion Gap 13 mmol/L (10-20); BUN (Urea Nitrogen) 28 mg/dL (9.8-20.1); Calc. Creatinine Clearance 101 mL/min (70-130); Calcium 8.9 mg/dL (7.8-10.44); Carbon Dioxide 20 mmol/L (22-29); Chloride 105 mmol/L (98-107); Glucose 161 mg/dL (70-105); Potassium 4.3 mmol/L (3.5-5.1); Sodium 134 mmol/L (136-145)
[2020-11-01 05:21] LABS: Band 2 % (5-11); Lymphocytes 24 % (21-51); MDiff Complete? YES; Monocytes 3 % (0-10); Neutrophil 69 % (42-75); Reactive Lymphocytes 2 % (0-10)
[2020-11-01] MEDS: Enoxaparin Sodium 40 MG/0.4 ML SYRINGE SC SCH (08:44)
[2020-11-01] MEDS: Lisinopril 20 MG TAB PO SCH (08:44)
[2020-11-01] MEDS: Furosemide 40 MG TAB PO SCH (08:45)
[2020-11-01] MEDS: Potassium Chloride 20 MEQ TAB PO SCH (08:45)
[2020-11-01] MEDS: NPH, Human Insulin Isophane 300 UNIT/3 ML VIAL SC SCH (08:45)
[2020-11-01] MEDS: Cefdinir 300 MG CAP PO SCH ×2 (08:45→20:34)
[2020-11-01] MEDS: Carvedilol 6.25 MG TAB PO SCH ×2 (08:45→16:35)
[2020-11-01] MEDS: metFORMIN 500 MG TAB PO SCH ×2 (08:45→16:33)
[2020-11-01] MEDS: glyBURIDE 5 MG TAB PO SCH ×2 (08:45→16:33)
[2020-11-02] MEDS: Lisinopril 20 MG TAB PO SCH (07:51)
[2020-11-02] MEDS: Enoxaparin Sodium 40 MG/0.4 ML SYRINGE SC SCH (07:51)
[2020-11-02] MEDS: NPH, Human Insulin Isophane 300 UNIT/3 ML VIAL SC SCH (07:52)
[2020-11-02] MEDS: metFORMIN 500 MG TAB PO SCH (07:52)
[2020-11-02] MEDS: glyBURIDE 5 MG TAB PO SCH (07:52)
[2020-11-02] MEDS: Furosemide 40 MG TAB PO SCH (07:52)
[2020-11-02] MEDS: Cefdinir 300 MG CAP PO SCH (07:52)
[2020-11-02] MEDS: Carvedilol 6.25 MG TAB PO SCH (07:52)
[2020-11-02] MEDS: Potassium Chloride 20 MEQ TAB PO SCH (07:52)
[2020-11-02 09:02] VITALS: BP 114/61; TEMP 97.5
== END 2020-11-02 12:20 | disposition home health service (06) | DRG 291 ==
LOC: ERS 19:07 → ERHOLD 10-30 00:21 → 2NO 10-30 10:03
PROVIDERS: ADMIT Internal Medicine; ATTEND Internal Medicine
DX: I11.0 Hypertensive heart disease with heart failure (principal); I50.21 Acute systolic (congestive) heart failure; J96.01 Acute respiratory failure with hypoxia; J18.9 Pneumonia, unspecified organism; E87.6 Hypokalemia; E83.42 Hypomagnesemia; E11.9 Type 2 diabetes mellitus without complications; R94.5 Abnormal results of liver function studies; E66.9 Obesity, unspecified; I42.8 Other cardiomyopathies; Z20.822 Contact with and (suspected) exposure to COVID-19; Z79.4 Long term (current) use of insulin; Z79.899 Other long term (current) drug therapy; Z90.49 Acquired absence of other specified parts of digestive tract; Z87.891 Personal history of nicotine dependence; Z98.51 Tubal ligation status; Z91.19 Patient's noncompliance with other medical treatment and regimen; Z68.33 Body mass index [BMI] 33.0-33.9, adult
CPT/HCPCS: 0240U; 36415; 36416; 36600; 71045; 71275; 80048; 80053; 82805; 83036; 83605; 83735; 83880; 84443; 84484; 85025; 87040; 87324; 87449; 93005; 93306; 94640; 94760; 96365; 96366; 96367; J0692; J1650; J1815; J1940; J1956; J3370; J3475; J3490; J7611; J7620; J8540; Q9967

== ENCOUNTER 2021-05-14 16:33 | Inpatient (IN) | payer SELFPAY ==
[2021-05-14] MEDS ORDERED: Albuterol 200 PUFF (6.7GM INHALER) ONE (16:58)
[2021-05-14] MEDS ORDERED: Furosemide 40 MG/4 ML VIAL ONE (16:58)
[2021-05-14 17:17] LABS: Actual Bicarbonate (HCO3v) 22 mEq/L (22-28); Analyzer IN Cardio ER; Base Excess -1.9 mEq/L (-2.0 to +3.0); Chloride (VBG) 96 mmol/L (98-106); Potassium (VBG) 3.19 mmol/L (3.70-5.30); Sodium 130.6 mmol/L (133-146)
[2021-05-14 17:18] LABS: #Basophils 0.1 thou/uL (0.0-0.2); #Eosinphils 0.3 thou/uL (0.0-0.7); #Lymphocytes 1.4 thou/uL (1.20-3.40); #Monocytes 0.6 thou/uL (0.11-0.59); %Basophils 0.4 % (0.0-1.0); %Eosinophils 1.8 % (0.0-10.0); %Lymphocytes 8.9 % (21.0-51.0); %Monocytes 3.6 % (0.0-10.0); %Neutrophils 85.3 % (42.0-75.0); Hemoglobin 14.3 g/dL (12.0-16.0); Mean Corpuscular HGB CONC 34.8 g/dL (32.0-36.0); Mean Corpuscular Hemoglobin 29.3 pg (27.0-31.0); Mean Corpuscular Volume 84.3 fL (78.0-98.0); Platelet Count 263 thou/uL (130-400); RBC Distribution Width 14.3 % (11.5-14.5); Red Blood Cell (RBC) Count 4.88 mill/uL (4.20-5.40); White Blood Cell (WBC) Count 15.3 thou/uL (4.8-10.8)
[2021-05-14] MEDS ORDERED: Azithromycin 250 MG TAB ONE (17:46)
[2021-05-14] MEDS ORDERED: cefTRIAXone\\ROCEPHIN 2 GM VIAL ONE (17:46)
[2021-05-14] MEDS ORDERED: Lorazepam 2 MG/ML VIAL ONE (17:46)
[2021-05-14] MEDS ORDERED: Sodium Chloride 0.9% 100 ML ONE (17:46)
[2021-05-14 18:15] LABS: SARS-CoV-2 NAA Rapid Test Not Detected (NotDetected)
[2021-05-14 19:12] LABS: Magnesium 1.4 mg/dL (1.6-2.6)
[2021-05-14 19:14] LABS: ALT (SGPT) 70 U/L (8-55); AST (SGOT) 77 U/L (5-34); Albumin 3.5 g/dL (3.5-5.0); Alkaline Phosphatase 167 U/L (40-110); Anion Gap 19 mmol/L (10-20); BUN (Urea Nitrogen) 8 mg/dL (9.8-20.1); Bilirubin, Total 0.4 mg/dL (0.2-1.2); Calc. Creatinine Clearance 0 mL/min (70-130); Calcium 8.6 mg/dL (7.8-10.44); Carbon Dioxide 18 mmol/L (22-29); Chloride 97 mmol/L (98-107); Globulin 3.7 g/dL (2.4-3.5); Glucose 516 mg/dL (70-105); Potassium 3.3 mmol/L (3.5-5.1); Protein, Total 7.2 g/dL (6.0-8.3); Sodium 131 mmol/L (136-145)
[2021-05-14] MEDS ORDERED: HumaLOG 300 UNITS/3 ML VIAL ONE (19:52)
[2021-05-14] MEDS ORDERED: Senokot S 8.6-50 MG TAB PO PRN (20:39)
[2021-05-14] MEDS ORDERED: Ondansetron ODT 4 MG TAB PO PRN (20:39)
[2021-05-14] MEDS ORDERED: Acetaminophen 325 MG TAB PO PRN (20:39)
[2021-05-14] MEDS ORDERED: Ondansetron PF 4 MG/2 ML Vial IVP PRN (20:39)
[2021-05-14] MEDS ORDERED: Dextrose 5% in Water 1,000 ML IV PRN (20:44)
[2021-05-14] MEDS ORDERED: Dextrose 50% Abboject 50 ML SYRINGE SLOW IVP PRN (20:44)
[2021-05-14] MEDS ORDERED: Potassium Chloride 20 MEQ TAB PO SCH (20:45)
[2021-05-14 21:52] LABS: Troponin I 0.107 ng/mL (< 0.028)
[2021-05-14] MEDS ORDERED: Benzonatate 100 MG CAP PO PRN (21:53)
[2021-05-14] MEDS ORDERED: Electrolyte Replacement Protocol 1 EACH FS SCH (22:00)
[2021-05-14] MEDS: Magnesium 2 GM/50 ML 2 GM in Premix Bag 1 BAG IVPB SCH ×2 (22:17→23:22)
[2021-05-14 22:43] VITALS: BMI 37.3
[2021-05-14] MEDS: HumaLOG 300 UNITS/3 ML VIAL SC PRN (23:17)
[2021-05-14 23:25] LABS: Hemoglobin A1c 10.4 % (4.0-6.0)
[2021-05-14 23:29] LABS: Anion Gap 14 mmol/L (10-20); BUN (Urea Nitrogen) 8 mg/dL (9.8-20.1); Calc. Creatinine Clearance 116 mL/min (70-130); Calcium 8.7 mg/dL (7.8-10.44); Carbon Dioxide 24 mmol/L (22-29); Chloride 98 mmol/L (98-107); Glucose 313 mg/dL (70-105); Potassium 3.9 mmol/L (3.5-5.1); Sodium 132 mmol/L (136-145)
[2021-05-14 23:33] LABS: Troponin I 0.119 ng/mL (< 0.028)
[2021-05-15 04:06] LABS: #Basophils 0.1 thou/uL (0.0-0.2); #Eosinphils 0.1 thou/uL (0.0-0.7); #Lymphocytes 2.4 thou/uL (1.20-3.40); #Monocytes 0.7 thou/uL (0.11-0.59); #Neutrophils 12.9 thou/uL (1.40-6.50); %Basophils 0.4 % (0.0-1.0); %Eosinophils 0.4 % (0.0-10.0); %Lymphocytes 14.8 % (21.0-51.0); %Monocytes 4.1 % (0.0-10.0); %Neutrophils 80.2 % (42.0-75.0); Hemoglobin 13.1 g/dL (12.0-16.0); Mean Corpuscular HGB CONC 34.9 g/dL (32.0-36.0); Mean Platelet Volume 7.6 fL (7.4-10.4); Platelet Count 290 thou/uL (130-400); RBC Distribution Width 14.4 % (11.5-14.5); Red Blood Cell (RBC) Count 4.51 mill/uL (4.20-5.40)
[2021-05-15 04:33] LABS: Lactic Acid 2.5 mmol/L (0.5-2.2)
[2021-05-15 04:37] LABS: Anion Gap 13 mmol/L (10-20); BUN (Urea Nitrogen) 9 mg/dL (9.8-20.1); Calc. Creatinine Clearance 122 mL/min (70-130); Calcium 8.6 mg/dL (7.8-10.44); Carbon Dioxide 26 mmol/L (22-29); Chloride 98 mmol/L (98-107); Glucose 279 mg/dL (70-105); Magnesium 2.3 mg/dL (1.6-2.6); Potassium 3.7 mmol/L (3.5-5.1); Sodium 133 mmol/L (136-145)
[2021-05-15] MEDS: Furosemide 40 MG/4 ML VIAL SLOW IVP SCH ×2 (06:31→13:14)
[2021-05-15] MEDS: HumaLOG 300 UNITS/3 ML VIAL SC PRN ×4 (07:38→22:23)
[2021-05-15] MEDS ORDERED: FLU VACC QS2021-22(6MOS UP)/PF 60 MCG/0.5 ML SYRINGE IM ONE (09:00)
[2021-05-15] MEDS: Azithromycin 250 MG TAB PO SCH (09:16)
[2021-05-15] MEDS: Enoxaparin Sodium 40 MG/0.4 ML SYRINGE SC SCH (09:16)
[2021-05-15 09:49] LABS: Bilirubin Negative (Negative); Blood, Urine Negative (Negative); Clarity Clear (Clear); Glucose, Urine (Dipstick) 500 mg/dL (Negative); Ketone, Urine Negative (Negative); Leukocyte Negative Leu/uL (Negative); Nitrite Negative (Negative); Protein, Urine (Dipstick) Negative (Neg-Trace); RBC/HPF 0-3 HPF (0-3); Specific Gravity, Urine 1.007 (1.002-1.036); Squamous Epithelial 0-3 HPF (0-3); Urobilinogen Normal mg/dL (Less than 2); WBC/HPF 0-3 HPF (0-3); pH, Urine 6.5 (5.0-9.0)
[2021-05-15 09:50] LABS: Bacteria/HPF 1+ HPF (None Seen); Urine Culture Reflex Yes Yes
[2021-05-15 10:03] LABS: Legionella Urinary Ag Negative (Negative); Strep pneumo Urine Ag NEGATIVE (NEGATIVE)
[2021-05-15] MEDS: Carvedilol 6.25 MG TAB PO SCH (16:47)
[2021-05-15] MEDS ORDERED: metFORMIN 500 MG TAB PO SCH (17:00)
[2021-05-15] MEDS: Atorvastatin Calcium 40 MG TAB PO SCH (21:12)
[2021-05-15] MEDS: Lisinopril 2.5 MG TAB PO SCH (21:12)
[2021-05-15] MEDS: cefTRIAXone\\ROCEPHIN 2 GM in Sodium Chloride 0.9% 100 ML IVPB SCH (22:14)
[2021-05-16] MEDS: Furosemide 40 MG/4 ML VIAL SLOW IVP SCH ×2 (06:12→15:46)
[2021-05-16] MEDS: HumaLOG 300 UNITS/3 ML VIAL SC PRN ×2 (06:17→21:09)
[2021-05-16 07:56] LABS: #Basophils 0.1 thou/uL (0.0-0.2); #Eosinphils 0.3 thou/uL (0.0-0.7); #Lymphocytes 2.3 thou/uL (1.20-3.40); #Monocytes 0.6 thou/uL (0.11-0.59); %Basophils 0.6 % (0.0-1.0); %Eosinophils 2.8 % (0.0-10.0); %Lymphocytes 22.7 % (21.0-51.0); %Monocytes 5.6 % (0.0-10.0); %Neutrophils 68.2 % (42.0-75.0); Hemoglobin 14.3 g/dL (12.0-16.0); Mean Corpuscular HGB CONC 35.2 g/dL (32.0-36.0); Mean Corpuscular Hemoglobin 29.2 pg (27.0-31.0); Mean Corpuscular Volume 83.1 fL (78.0-98.0); Mean Platelet Volume 7.6 fL (7.4-10.4); Platelet Count 273 thou/uL (130-400); RBC Distribution Width 14.6 % (11.5-14.5); Red Blood Cell (RBC) Count 4.91 mill/uL (4.20-5.40); White Blood Cell (WBC) Count 10.2 thou/uL (4.8-10.8)
[2021-05-16 08:16] LABS: Anion Gap 13 mmol/L (10-20); BUN (Urea Nitrogen) 13 mg/dL (9.8-20.1); Calc. Creatinine Clearance 104 mL/min (70-130); Calcium 9.3 mg/dL (7.8-10.44); Carbon Dioxide 26 mmol/L (22-29); Chloride 95 mmol/L (98-107); Glucose 336 mg/dL (70-105); Potassium 3.3 mmol/L (3.5-5.1); Sodium 131 mmol/L (136-145)
[2021-05-16] MEDS ORDERED: Potassium Chloride 20 MEQ TAB PO SCH ×2 (08:45→14:15)
[2021-05-16] MEDS: Enoxaparin Sodium 40 MG/0.4 ML SYRINGE SC SCH (11:06)
[2021-05-16] MEDS: Carvedilol 6.25 MG TAB PO SCH ×2 (11:07→18:42)
[2021-05-16] MEDS: metFORMIN 500 MG TAB PO SCH ×2 (11:07→18:42)
[2021-05-16] MEDS: Azithromycin 250 MG TAB PO SCH (11:07)
[2021-05-16] MEDS: Lisinopril 2.5 MG TAB PO SCH (20:29)
[2021-05-16] MEDS: Atorvastatin Calcium 40 MG TAB PO SCH (20:29)
[2021-05-16] MEDS: cefTRIAXone\\ROCEPHIN 2 GM in Sodium Chloride 0.9% 100 ML IVPB SCH (21:35)
[2021-05-17 05:24] LABS: #Basophils 0.1 thou/uL (0.0-0.2); #Eosinphils 0.4 thou/uL (0.0-0.7); #Lymphocytes 2.3 thou/uL (1.20-3.40); #Monocytes 0.6 thou/uL (0.11-0.59); #Neutrophils 6.2 thou/uL (1.40-6.50); %Basophils 0.8 % (0.0-1.0); %Eosinophils 3.9 % (0.0-10.0); %Monocytes 6.7 % (0.0-10.0); %Neutrophils 64.7 % (42.0-75.0); Hemoglobin 13.7 g/dL (12.0-16.0); Mean Corpuscular HGB CONC 34.8 g/dL (32.0-36.0); Mean Corpuscular Hemoglobin 29.1 pg (27.0-31.0); Mean Corpuscular Volume 83.6 fL (78.0-98.0); Mean Platelet Volume 7.9 fL (7.4-10.4); Platelet Count 247 thou/uL (130-400); RBC Distribution Width 14.4 % (11.5-14.5); White Blood Cell (WBC) Count 9.6 thou/uL (4.8-10.8)
[2021-05-17 05:42] LABS: Anion Gap 12 mmol/L (10-20); BUN (Urea Nitrogen) 15 mg/dL (9.8-20.1); Calc. Creatinine Clearance 110 mL/min (70-130); Carbon Dioxide 24 mmol/L (22-29); Chloride 97 mmol/L (98-107); Glucose 285 mg/dL (70-105); Magnesium 1.4 mg/dL (1.6-2.6); Sodium 129 mmol/L (136-145)
[2021-05-17] MEDS: HumaLOG 300 UNITS/3 ML VIAL SC PRN ×3 (06:03→16:55)
[2021-05-17] MEDS: Magnesium 2 GM/50 ML 2 GM in Premix Bag 1 BAG IVPB SCH ×2 (06:11→08:59)
[2021-05-17] MEDS: Enoxaparin Sodium 40 MG/0.4 ML SYRINGE SC SCH (08:59)
[2021-05-17] MEDS: Sodium Chloride 1 GM TAB PO SCH ×2 (09:00→20:57)
[2021-05-17] MEDS: metFORMIN 500 MG TAB PO SCH ×2 (09:00→16:55)
[2021-05-17] MEDS: Carvedilol 6.25 MG TAB PO SCH ×2 (09:00→16:55)
[2021-05-17] MEDS: Furosemide 40 MG TAB PO SCH (09:00)
[2021-05-17] MEDS: Azithromycin 250 MG TAB PO SCH (09:00)
[2021-05-17 14:27] LABS: Magnesium 1.9 mg/dL (1.6-2.6); Potassium 3.7 mmol/L (3.5-5.1); Sodium 131 mmol/L (136-145)
[2021-05-17] MEDS: Lisinopril 5 MG TAB PO SCH (20:56)
[2021-05-17] MEDS: cefTRIAXone\\ROCEPHIN 2 GM in Sodium Chloride 0.9% 100 ML IVPB SCH (20:56)
[2021-05-17] MEDS: Atorvastatin Calcium 40 MG TAB PO SCH (20:57)
[2021-05-17] MEDS ORDERED: Magnesium 2 GM/50 ML 2 GM in Premix Bag 1 BAG IVPB SCH (22:00)
[2021-05-18] MEDS ORDERED: Iopamidol 370 76% 50 ML VIAL FS ONE (08:40)
[2021-05-18] MEDS: Enoxaparin Sodium 40 MG/0.4 ML SYRINGE SC SCH (08:49)
[2021-05-18] MEDS: Lisinopril 5 MG TAB PO SCH (08:49)
[2021-05-18] MEDS: Carvedilol 6.25 MG TAB PO SCH ×3 (08:49→20:36)
[2021-05-18] MEDS: Azithromycin 250 MG TAB PO SCH (08:49)
[2021-05-18] MEDS: Furosemide 40 MG TAB PO SCH (08:49)
[2021-05-18] MEDS: Sodium Chloride 1 GM TAB PO SCH ×2 (08:49→20:35)
[2021-05-18] MEDS: metFORMIN 500 MG TAB PO SCH ×2 (08:50→16:23)
[2021-05-18] MEDS ORDERED: Gentamicin 80 MG/2 ML VIAL ONE (10:11)
[2021-05-18] MEDS ORDERED: CEFAZOLIN 1 GM VIAL ONE (10:11)
[2021-05-18] MEDS ORDERED: Lidocaine 1% (PF) 30 ML VIAL ONE (10:11)
[2021-05-18] MEDS ORDERED: HYDROmorphone 2 MG/ML VIAL ONE (11:10)
[2021-05-18] MEDS ORDERED: Fentanyl 100 MCG/2 ML VIAL ONE ×2 (11:10→13:00)
[2021-05-18] MEDS ORDERED: Sodium Chloride 0.9% 10 ML ONE (11:10)
[2021-05-18] MEDS ORDERED: Propofol 1,000 MG/100 ML VIAL IV ONE (11:12)
[2021-05-18] MEDS ORDERED: Dexamethasone 20 MG/5 ML VIAL ONE (11:28)
[2021-05-18] MEDS ORDERED: Phenylephrine 10 MG/ML VIAL ONE (11:28)
[2021-05-18] MEDS ORDERED: Ondansetron PF 4 MG/2 ML Vial ONE (11:28)
[2021-05-18] MEDS ORDERED: ePHEDrine 50 MG/ML VIAL ONE (11:28)
[2021-05-18] MEDS ORDERED: PROPOFOL 200 MG/20 ML VIAL ONE (11:28)
[2021-05-18] MEDS ORDERED: Midazolam HCl 2 mg/2 ml Vial ONE (11:32)
[2021-05-18] MEDS: HYDROcodone/Acetaminophen 7.5/325 mg Tablet PO PRN ×2 (16:21→20:35)
[2021-05-18] MEDS: HumaLOG 300 UNITS/3 ML VIAL SC PRN ×2 (17:02→20:36)
[2021-05-18] MEDS ORDERED: Insulin Regular 300 UNITS/3 ML VIAL IVP SCH (18:15)
[2021-05-18] MEDS: cefTRIAXone\\ROCEPHIN 2 GM in Sodium Chloride 0.9% 100 ML IVPB SCH (20:36)
[2021-05-18] MEDS: Atorvastatin Calcium 40 MG TAB PO SCH (20:36)
[2021-05-19] MEDS: HYDROcodone/Acetaminophen 7.5/325 mg Tablet PO PRN ×2 (01:37→09:08)
[2021-05-19 05:35] LABS: #Lymphocytes 1.5 thou/uL (1.20-3.40); #Monocytes 0.6 thou/uL (0.11-0.59); #Neutrophils 10.1 thou/uL (1.40-6.50); %Basophils 0.2 % (0.0-1.0); %Eosinophils 0.1 % (0.0-10.0); %Lymphocytes 12.3 % (21.0-51.0); %Monocytes 4.8 % (0.0-10.0); %Neutrophils 82.7 % (42.0-75.0); Hemoglobin 12.7 g/dL (12.0-16.0); Mean Corpuscular HGB CONC 33.3 g/dL (32.0-36.0); Mean Corpuscular Hemoglobin 27.9 pg (27.0-31.0); Mean Corpuscular Volume 83.8 fL (78.0-98.0); Mean Platelet Volume 8.1 fL (7.4-10.4); Platelet Count 269 thou/uL (130-400); RBC Distribution Width 14.4 % (11.5-14.5); Red Blood Cell (RBC) Count 4.56 mill/uL (4.20-5.40); White Blood Cell (WBC) Count 12.2 thou/uL (4.8-10.8)
[2021-05-19 05:56] LABS: Anion Gap 13 mmol/L (10-20); BUN (Urea Nitrogen) 19 mg/dL (9.8-20.1); Calc. Creatinine Clearance 105 mL/min (70-130); Calcium 9.5 mg/dL (7.8-10.44); Carbon Dioxide 24 mmol/L (22-29); Chloride 98 mmol/L (98-107); Glucose 324 mg/dL (70-105); Potassium 4.3 mmol/L (3.5-5.1); Sodium 131 mmol/L (136-145)
[2021-05-19] MEDS: HumaLOG 300 UNITS/3 ML VIAL SC PRN (06:04)
[2021-05-19] MEDS: Furosemide 40 MG TAB PO SCH (08:00)
[2021-05-19] MEDS ORDERED: HumaLOG 300 UNITS/3 ML VIAL SC PRN (08:05)
[2021-05-19] MEDS ORDERED: Glimepiride 2 MG TAB PO SCH (08:30)
[2021-05-19] MEDS ORDERED: Furosemide 40 MG/4 ML VIAL ONE (08:45)
[2021-05-19] MEDS: metFORMIN 500 MG TAB PO SCH ×2 (08:48→17:20)
[2021-05-19] MEDS: Carvedilol 6.25 MG TAB PO SCH ×2 (08:51→15:45)
[2021-05-19] MEDS: Sodium Chloride 1 GM TAB PO SCH (08:52)
[2021-05-19] MEDS: Enoxaparin Sodium 40 MG/0.4 ML SYRINGE SC SCH (08:52)
[2021-05-19] MEDS ORDERED: Cephalexin 250 MG CAP PO SCH (12:00)
[2021-05-19 15:39] VITALS: TEMP 98.1
[2021-05-19 15:46] VITALS: BP 168/81
[2021-05-20] MEDS ORDERED: Glimepiride 2 MG TAB PO SCH (08:00)
== END 2021-05-19 17:35 | disposition home or self-care (01) | DRG 226 ==
LOC: ERS 16:33 → 2NO 19:47
PROVIDERS: ADMIT Student in an Organized Health Care Education/Training Program; ATTEND Internal Medicine
PROC: 5A09457 Assistance with Respiratory Ventilation, 24-96 Consecutive Hours, Continuous Positive Airway Pressure (ICD-10-PCS; principal; 2021-05-14)
PROC: 0JH608Z Insertion of Defibrillator Generator into Chest Subcutaneous Tissue and Fascia, Open Approach (ICD-10-PCS; 2021-05-18)
PROC: 02HK0KZ Insertion of Defibrillator Lead into Right Ventricle, Open Approach (ICD-10-PCS; 2021-05-18)
DX: I11.0 Hypertensive heart disease with heart failure (principal); J96.01 Acute respiratory failure with hypoxia; I50.23 Acute on chronic systolic (congestive) heart failure; J18.9 Pneumonia, unspecified organism; E87.1 Hypo-osmolality and hyponatremia; E87.2 Acidosis; I42.8 Other cardiomyopathies; Z20.822 Contact with and (suspected) exposure to COVID-19; E78.00 Pure hypercholesterolemia, unspecified; E66.01 Morbid (severe) obesity due to excess calories; E83.42 Hypomagnesemia; E87.6 Hypokalemia; E11.65 Type 2 diabetes mellitus with hyperglycemia; E78.5 Hyperlipidemia, unspecified; Z79.84 Long term (current) use of oral hypoglycemic drugs; Z79.899 Other long term (current) drug therapy; Z90.49 Acquired absence of other specified parts of digestive tract; Z87.891 Personal history of nicotine dependence; Z68.36 Body mass index [BMI] 36.0-36.9, adult
CPT/HCPCS: 0240U; 33249; 36415; 36416; 71045; 71275; 80048; 80053; 81001; 82805; 83036; 83605; 83735; 83880; 84484; 85025; 85379; 87040; 87086; 87449; 87899; 90471; 90686; 90732; 93005; 93306; 93641; 94760; C1777; C1786; G0008; G0009; J0690; J0696; J1100; J1170; J1580; J1650; J1815; J1940; J2001; J2060; J2250; J2370; J2405; J2704; J3010; J3475; J3490; Q9967

== ENCOUNTER 2023-10-02 19:59 | Inpatient (IN) | payer SELFPAY ==
[~2023-10-02 19:59] MED LIST changes: +Iopamidol 370 76% 100 ML VIAL ONE; -Iopamidol-370 76% 500 ML 1 ML ONE
[2023-10-02] MEDS ORDERED: Furosemide 100 MG (10 mL) VIAL ONE (20:18)
[2023-10-02] MEDS ORDERED: Potassium Chloride 20 MEQ in Premix 1 BAG IVPB SCH (20:45)
[2023-10-02] MEDS ORDERED: Verapamil 5 MG/2 ML VIAL ONE (21:04)
[2023-10-02] MEDS ORDERED: Nitroglycerin 50 MG/250 ML BOT 250 ML ONE (21:04)
[2023-10-02] MEDS ORDERED: Adenosine 6 mg (2 mL) VIAL ONE (21:04)
[2023-10-02] MEDS ORDERED: dilTIAZem 25 MG/5 ML VIAL ONE (21:26)
[2023-10-02] MEDS ORDERED: Metoprolol Tartrate 5 MG (5 mL) VIAL ONE (21:28)
[2023-10-02] MEDS ORDERED: Tirofiban-0.9% Sodium Chloride 250 ML ONE (22:07)
[2023-10-02] MEDS ORDERED: Heparin 1,000 UNITS/ML VIAL ONE (22:11)
[2023-10-02] MEDS ORDERED: Clopidogrel Bisulfate 300 MG TAB ONE (22:18)
[2023-10-02] MEDS ORDERED: Ventilator Sedation Protocol 1 EACH FS SCH (22:19)
[2023-10-02] MEDS ORDERED: Morphine 2 MG/ML VIAL SLOW IVP PRN (22:30)
[2023-10-02] MEDS ORDERED: DISCONTINUE PREVIOUS NARCOTIC PAIN MEDICATIONS AND BENZODIAZEPINES FS SCH (22:30)
[2023-10-02] MEDS ORDERED: Fentanyl BOLUS 250 ML IVPB PRN (22:30)
[2023-10-02] MEDS ORDERED: Propofol BOLUS 1,000 MG/100 ML VIAL IV PRN (22:30)
[2023-10-02] MEDS ORDERED: Dextrose 50% Abboject 50 ML SYRINGE SLOW IVP PRN (23:10)
[2023-10-02] MEDS ORDERED: Glucagon 1 MG/ML KIT IM PRN (23:10)
[2023-10-02] MEDS ORDERED: HumaLOG 300 UNITS/3 ML VIAL SC PRN ×2 (23:10)
[2023-10-02] MEDS ORDERED: Dextrose 5% in Water 1,000 ML IV PRN (23:10)
[2023-10-02 23:22] LABS: Actual Bicarbonate (HCO3a) 30.3 mEq/L (22-28); Base Excess (BEa) 2.4 mEq/L (-2.0 to +3.0); Calcium, Ionized (arterial) 1.14 mmol/L (1.12-1.30); Carboxyhemoglobin (COHb) 0.8 gm% (0.0-3.0); Hematocrit-ABG 39 % (36.0-47.0); Hemoglobin (Hb) 13.4 g/dL (12.0-16.0); Potassium - ABG Lab 3.56 mmol/L (3.70-5.30); pH, Arterial 7.303 (7.35-7.45)
[2023-10-02 23:29] LABS: CO2 Tension 62.6 mmHg (35.0-45.0)
[2023-10-02 23:30] LABS: O2 Tension (PaO2), arterial 51.2 mmHg (> 80.0)
[2023-10-02 23:31] LABS: Puncture Site Arterial Line
[2023-10-02] MEDS ORDERED: Electrolyte Replacement Protocol 1 EACH FS SCH (23:33)
[2023-10-02 23:36] LABS: #Basophils 0.14 10x3/uL (0.0-0.2); %Basophils 0.6 % (0.0-1.0); %Eosinophils 0.4 % (0.0-10.0); %Lymphocytes 9.5 % (21.0-51.0); %Monocytes 2.1 % (0.0-10.0); %Neutrophils 84.5 % (42.0-75.0); Hematocrit 41.2 % (36.0-47.0); Hemoglobin 13.2 g/dL (12.0-16.0); Mean Corpuscular Hemoglobin 27.5 pg (27.0-31.0); Mean Corpuscular Volume 85.8 fL (78.0-98.0); Mean Platelet Volume 10.7 fL (7.4-10.4); Platelet Count 384 10x3/uL (130-400); RBC Distribution Width 15.5 % (11.5-14.5)
[2023-10-02] MEDS ORDERED: Potassium Chloride 40 MEQ in Premix 1 BAG IVPB SCH (23:45)
[2023-10-02] MEDS: Potassium Chloride 40 MEQ in Premix 1 BAG IVPB SCH (23:48)
[2023-10-02 23:50] LABS: Anion Gap 25 mmol/L (10-20); BUN (Urea Nitrogen) 15 mg/dL (9.8-20.1); Calc. Creatinine Clearance 91 mL/min (70-130); Calcium 10.1 mg/dL (7.8-10.44); Carbon Dioxide 28 mmol/L (22-29); Chloride 94 mmol/L (98-107); Estimated GFR 60; Glucose 492 mg/dL (70-105); Magnesium 1.6 mg/dL (1.6-2.6); Sodium 144 mmol/L (136-145)
[2023-10-02] MEDS: Sodium Chloride 0.9% 1,000 ML IV SCH (23:51)
[2023-10-02] MEDS ORDERED: Ipratropium/Albuterol 3 ML NEB NEB PRN (23:54)
[2023-10-02] MEDS ORDERED: Vecuronium 10 MG VIAL IV PRN (23:55)
[2023-10-02] MEDS ORDERED: Sterile Water 10 ML VIAL FS PRN (23:55)
[2023-10-03 00:03] LABS: Lactic Acid 5.4 mmol/L (0.5-2.2)
[2023-10-03] MEDS ORDERED: Potassium Chloride 20 MEQ TAB PER TUBE SCH (00:15)
[2023-10-03] MEDS ORDERED: Furosemide 40 MG TAB PO SCH (00:30)
[2023-10-03] MEDS: NOREPINEPHRINE 8 MG/250 ML-D5W 250 ML IVPB SCH (00:39)
[2023-10-03] MEDS: NOREPINEPHRINE 8 MG/250 ML-D5W 250 ML ONE (00:40)
[2023-10-03] MEDS: DOBUTamine 500 mg/250 ml 250 ML ONE (00:40)
[2023-10-03] MEDS: Magnesium 2 GM/50 ML(in water) 2 GM in Premix 1 BAG IVPB SCH ×2 (01:02→10:19)
[2023-10-03] MEDS: HumaLOG 300 UNITS/3 ML VIAL SC PRN (01:05)
[2023-10-03] MEDS: Furosemide 20 MG (2 mL) VIAL SLOW IVP SCH ×2 (01:08→05:11)
[2023-10-03] MEDS: Potassium Chloride 20 MEQ TAB PER TUBE SCH ×2 (01:08→09:29)
[2023-10-03 01:11] LABS: Troponin I 2.884 ng/mL (< 0.028)
[2023-10-03 01:13] LABS: Critical Call Chem Troponin I SJOS.AEG@0112
[2023-10-03 01:18] LABS: Bacteria/HPF None Seen HPF (None Seen); Bilirubin Negative (Negative); Blood, Urine 3+ (Negative); Clarity Clear (Clear); Glucose, Urine (Dipstick) 500 mg/dL (Negative); Ketone, Urine Negative (Negative); Leukocyte Negative Leu/uL (Negative); Nitrite Negative (Negative); Protein, Urine (Dipstick) 10 mg/dL (Neg-Trace); RBC/HPF 21-50 HPF (0-3); Squamous Epithelial 0-3 HPF (0-3); Urobilinogen Normal mg/dL (Less than 2); WBC/HPF 0-3 HPF (0-3); pH, Urine 5.5 (5.0-9.0)
[2023-10-03 01:19] LABS: Specific Gravity, Urine Greater than 1.060 (1.002-1.036)
[2023-10-03] MEDS ORDERED: VANC IVPB PRN (01:24)
[2023-10-03] MEDS: Cefepime 2 GM in Sodium Chloride 0.9% 100 ML IVPB SCH (01:36)
[2023-10-03] MEDS: Vancomycin (BATCH) 2.5 GM in Premix 1 BAG IVPB SCH (01:59)
[2023-10-03] MEDS: Vancomycin (BATCH) 1.5 GM in Premix 1 BAG IVPB SCH (02:02)
[2023-10-03 02:23] LABS: Actual Bicarbonate (HCO3a) 24.6 mEq/L (22-28); Base Excess (BEa) -4.5 mEq/L (-2.0 to +3.0); Calcium, Ionized (arterial) 1.18 mmol/L (1.12-1.30); Carboxyhemoglobin (COHb) 0.6 gm% (0.0-3.0); Hematocrit-ABG 39 % (36.0-47.0); Hemoglobin (Hb) 13.2 g/dL (12.0-16.0); Potassium - ABG Lab 2.73 mmol/L (3.70-5.30)
[2023-10-03] MEDS: Ipratropium/Albuterol 3 ML NEB NEB SCH ×2 (02:29→08:20)
[2023-10-03 02:31] LABS: pH, Arterial 7.199 (7.35-7.45)
[2023-10-03 02:32] LABS: CO2 Tension 64.6 mmHg (35.0-45.0); O2 Tension (PaO2), arterial 55.9 mmHg (> 80.0); Puncture Site Arterial Line
[2023-10-03] MEDS ORDERED: DOBUTamine 500 mg/250 ml 250 ML IVPB SCH (03:15)
[2023-10-03] MEDS: Potassium Chloride 40 MEQ in Premix 1 BAG IVPB SCH ×2 (03:25→06:09)
[2023-10-03] MEDS ORDERED: Ipratropium/Albuterol 3 ML NEB EZPAP PRN (03:39)
[2023-10-03 03:59] LABS: Actual Bicarbonate (HCO3a) 25.2 mEq/L (22-28); Base Excess (BEa) -2.7 mEq/L (-2.0 to +3.0); CO2 Tension 57.8 mmHg (35.0-45.0); Calcium, Ionized (arterial) 1.19 mmol/L (1.12-1.30); Carboxyhemoglobin (COHb) 0.4 gm% (0.0-3.0); Hematocrit-ABG 39 % (36.0-47.0); Hemoglobin (Hb) 13.2 g/dL (12.0-16.0); Potassium - ABG Lab 2.79 mmol/L (3.70-5.30); pH, Arterial 7.258 (7.35-7.45)
[2023-10-03 04:09] LABS: O2 Tension (PaO2), arterial 52.3 mmHg (> 80.0)
[2023-10-03 04:10] LABS: Puncture Site Arterial Line
[2023-10-03 05:06] VITALS: TEMP 97.2
[2023-10-03 05:07] LABS: Hematocrit 38.6 % (36.0-47.0); Hemoglobin 12.4 g/dL (12.0-16.0); Mean Corpuscular HGB CONC 32.1 g/dL (32.0-36.0); Mean Corpuscular Volume 87.1 fL (78.0-98.0); Mean Platelet Volume 10.4 fL (7.4-10.4); Platelet Count 406 10x3/uL (130-400); RBC Distribution Width 15.7 % (11.5-14.5); Red Blood Cell (RBC) Count 4.43 mill/uL (4.20-5.40)
[2023-10-03 05:08] VITALS: BMI 43.2
[2023-10-03 05:10] LABS: INR-International Normal Ratio 1.2; PTT 48.3 sec (22.9-36.1); Prothrombin Time 15.3 sec (12.0-14.7)
[2023-10-03 05:31] LABS: Globulin 3.5 g/dL (2.4-3.5)
[2023-10-03 05:48] LABS: ALT (SGPT) 101 U/L (8-55); AST (SGOT) 139 U/L (5-34); Albumin 2.8 g/dL (3.5-5.0); Alkaline Phosphatase 191 U/L (40-110); Anion Gap 18 mmol/L (10-20); BUN (Urea Nitrogen) 24 mg/dL (9.8-20.1); Bilirubin, Total 0.7 mg/dL (0.2-1.2); Calc. Creatinine Clearance 85 mL/min (70-130); Carbon Dioxide 25 mmol/L (22-29); Chloride 102 mmol/L (98-107); Estimated GFR 54; Glucose 396 mg/dL (70-105); Potassium 2.6 mmol/L (3.5-5.1); Protein, Total 6.3 g/dL (6.0-8.3); Sodium 142 mmol/L (136-145)
[2023-10-03 05:48] LABS: Lactic Acid 7.8 mmol/L (0.5-2.2)
[2023-10-03] MEDS: Propofol 1,000 MG/100 ML VIAL IV PRN (05:49)
[2023-10-03 06:08] LABS: Band 25 % (5-11); Eosinophils 2 % (0-10); Lymphocytes 3 % (21-51); Macrocytosis SLIGHT = 6-15 cells HPF (0-5); Monocytes 3 % (0-10); Neutrophil 67 % (42-75); Platelet Adequacy Comment Platelets Normal; Polychromasia SLIGHT = 2-3 cells HPF (0-2); RBC Morphology Within Normal Limits
[2023-10-03 06:12] LABS: Hematocrit 38.6 % (36.0-47.0); Hemoglobin 12.4 g/dL (12.0-16.0); Mean Corpuscular HGB CONC 32.1 g/dL (32.0-36.0); Mean Corpuscular Volume 87.1 fL (78.0-98.0); Mean Platelet Volume 10.3 fL (7.4-10.4); Platelet Count 418 10x3/uL (130-400); RBC Distribution Width 15.8 % (11.5-14.5); Red Blood Cell (RBC) Count 4.43 mill/uL (4.20-5.40)
[2023-10-03 06:13] LABS: INR-International Normal Ratio 1.2; PTT 40.6 sec (22.9-36.1); Prothrombin Time 15.1 sec (12.0-14.7)
[2023-10-03 06:22] LABS: Phosphorus 2.9 mg/dL (2.3-4.7)
[2023-10-03 06:41] LABS: Band 21 % (5-11); Eosinophils 1 % (0-10); Large Platelets 1.9 % (0-5); Lymphocytes 6 % (21-51); Metamyelocyte 2 % (0-0); Monocytes 4 % (0-10); Neutrophil 66 % (42-75); Platelet Adequacy Comment Platelets Normal; RBC Morphology Within Normal Limits; Smudge Cells 21.2 %
[2023-10-03] MEDS: Lorazepam 2 MG/ML VIAL SLOW IVP PRN ×2 (07:25→14:25)
[2023-10-03 07:45] LABS: Anion Gap 22 mmol/L (10-20); BUN (Urea Nitrogen) 24 mg/dL (9.8-20.1); CK (CPK) 847 U/L (29-168); Calc. Creatinine Clearance 90 mL/min (70-130); Calcium 8.9 mg/dL (7.8-10.44); Carbon Dioxide 23 mmol/L (22-29); Chloride 101 mmol/L (98-107); Estimated GFR 58; Glucose 431 mg/dL (70-105); Magnesium 1.8 mg/dL (1.6-2.6); Sodium 143 mmol/L (136-145)
[2023-10-03 07:47] VITALS: BMI 43.2
[2023-10-03] MEDS: Vecuronium 10 MG VIAL IV PRN (09:00)
[2023-10-03] MEDS ORDERED: Insulin Glargine 30 UNITS/0.3 ML VIAL SC SCH ×3 (09:00→21:00)
[2023-10-03] MEDS: Sodium Bicarb 50 MEQ/50 ML Abboject 8.4% SYRINGE IVP SCH ×2 (09:04→09:10)
[2023-10-03] MEDS: EPINEPHrine 1 MG/10 ML Abboject SYRINGE IVP SCH (09:05)
[2023-10-03] MEDS: EPINEPHrine 4 MG in Dextrose 5% in Water 250 ML IVP SCH (09:20)
[2023-10-03] MEDS: Sodium Bicarb 50 MEQ/50 ML Abboject 8.4% SYRINGE ONE ×2 (09:29)
[2023-10-03] MEDS: Insulin Glargine 30 UNITS/0.3 ML VIAL SC SCH (09:40)
[2023-10-03] MEDS: Sodium Bicarbonate 150 MEQ in Dextrose 5% in Water 1,000 ML IV SCH (09:40)
[2023-10-03] MEDS: Fentanyl CADD 100 ML IV SCH (09:40)
[2023-10-03] MEDS: Aspirin Chewable 81 MG TAB PO SCH (09:41)
[2023-10-03] MEDS: Potassium Bicarbonate/Cit Ac 20 MEQ TAB PER TUBE SCH (09:41)
[2023-10-03] MEDS: Pantoprazole 40 MG VIAL IVP SCH (09:41)
[2023-10-03] MEDS: Clopidogrel Bisulfate 75 MG TAB PO SCH (09:41)
[2023-10-03 11:23] VITALS: BP 99/48
[2023-10-03 12:25] LABS: Hematocrit 34.8 % (36.0-47.0); Hemoglobin 11.5 g/dL (12.0-16.0); Mean Corpuscular Hemoglobin 28.8 pg (27.0-31.0); Mean Platelet Volume 10.4 fL (7.4-10.4); Platelet Count 351 10x3/uL (130-400); RBC Distribution Width 15.9 % (11.5-14.5)
[2023-10-03 12:29] LABS: INR-International Normal Ratio 1.1; Prothrombin Time 14.3 sec (12.0-14.7)
[2023-10-03 12:30] LABS: PTT 36.4 sec (22.9-36.1)
[2023-10-03 12:48] LABS: Band 28 % (5-11); Lymphocytes 7 % (21-51); Neutrophil 65 % (42-75); Platelet Adequacy Comment Platelets Normal; Polychromasia SLIGHT = 2-3 cells HPF (0-2)
[2023-10-03 13:17] LABS: Anion Gap 22 mmol/L (10-20); BUN (Urea Nitrogen) 23 mg/dL (9.8-20.1); CK (CPK) 890 U/L (29-168); Calc. Creatinine Clearance 93 mL/min (70-130); Calcium 8.6 mg/dL (7.8-10.44); Carbon Dioxide 24 mmol/L (22-29); Chloride 101 mmol/L (98-107); Estimated GFR 60; Glucose 498 mg/dL (70-105); Magnesium 2.2 mg/dL (1.6-2.6); Phosphorus Less than 0.7 mg/dL (2.3-4.7); Potassium 1.7 mmol/L (3.5-5.1); Sodium 145 mmol/L (136-145)
[2023-10-03] MEDS ORDERED: Potassium Chloride 40 MEQ in Premix 1 BAG IVPB SCH (14:00)
[2023-10-03] MEDS: Morphine 4 MG/ML VIAL SLOW IVP PRN (14:25)
[2023-10-03] MEDS ORDERED: Atorvastatin Calcium 40 MG TAB PO SCH (21:00)
[2023-10-03] MEDS ORDERED: Vancomycin (BATCH) 1.25 GM in Premix 1 BAG IVPB SCH (23:59)
== END 2023-10-03 16:06 | disposition expired | DRG 321 ==
LOC: ERS 19:59 → CCU 20:18 → SDC/OP 20:26 → CCU 22:27
PROVIDERS: ADMIT Internal Medicine Cardiovascular Disease; ATTEND Internal Medicine
PROC: 027036Z Dilation of Coronary Artery, One Artery with Three Drug-eluting Intraluminal Devices, Percutaneous Approach (ICD-10-PCS; principal; 2023-10-02)
PROC: B240ZZ3 Ultrasonography of Single Coronary Artery, Intravascular (ICD-10-PCS; 2023-10-02)
PROC: 4A023N7 Measurement of Cardiac Sampling and Pressure, Left Heart, Percutaneous Approach (ICD-10-PCS; 2023-10-02)
PROC: B2111ZZ Fluoroscopy of Multiple Coronary Arteries using Low Osmolar Contrast (ICD-10-PCS; 2023-10-02)
PROC: B2151ZZ Fluoroscopy of Left Heart using Low Osmolar Contrast (ICD-10-PCS; 2023-10-02)
PROC: 0BH17EZ Insertion of Endotracheal Airway into Trachea, Via Natural or Artificial Opening (ICD-10-PCS; 2023-10-02)
PROC: 5A1935Z Respiratory Ventilation, Less than 24 Consecutive Hours (ICD-10-PCS; 2023-10-02)
PROC: 5A12012 Performance of Cardiac Output, Single, Manual (ICD-10-PCS; 2023-10-02)
PROC: 3E033XZ Introduction of Vasopressor into Peripheral Vein, Percutaneous Approach (ICD-10-PCS; 2023-10-03)
DX: I21.02 ST elevation (STEMI) myocardial infarction involving left anterior descending coronary artery (principal); I25.42 Coronary artery dissection; I50.23 Acute on chronic systolic (congestive) heart failure; J96.01 Acute respiratory failure with hypoxia; J96.02 Acute respiratory failure with hypercapnia; I42.8 Other cardiomyopathies; E87.29 Other acidosis; Z66 Do not resuscitate; Z51.5 Encounter for palliative care; G47.30 Sleep apnea, unspecified; F17.210 Nicotine dependence, cigarettes, uncomplicated; I95.9 Hypotension, unspecified; J44.9 Chronic obstructive pulmonary disease, unspecified; F41.9 Anxiety disorder, unspecified; E78.5 Hyperlipidemia, unspecified; I49.5 Sick sinus syndrome; I11.0 Hypertensive heart disease with heart failure; R57.0 Cardiogenic shock; E87.6 Hypokalemia; E11.65 Type 2 diabetes mellitus with hyperglycemia; I25.10 Atherosclerotic heart disease of native coronary artery without angina pectoris; D72.829 Elevated white blood cell count, unspecified; R74.01 Elevation of levels of liver transaminase levels; I44.7 Left bundle-branch block, unspecified; Z79.899 Other long term (current) drug therapy; Z79.51 Long term (current) use of inhaled steroids; Z95.810 Presence of automatic (implantable) cardiac defibrillator; Z95.5 Presence of coronary angioplasty implant and graft; Z79.4 Long term (current) use of insulin; Z78.1 Physical restraint status; Z90.49 Acquired absence of other specified parts of digestive tract; Z98.51 Tubal ligation status
CPT/HCPCS: 36415; 36556; 71045; 80053; 81001; 82010; 82805; 83605; 83735; 83880; 84100; 85025; 85347; 85610; 85730; 87040; 92941; 92978; 93005; 93010; 93306; 93458; 94002; 94003; 94640; C1751; C1753; C1769; C1874; C1887; C1894; C9113; C9606; J0153; J0171; J0692; J1644; J1815; J1940; J2060; J2270; J2272; J2704; J3010; J3246; J3370; J3475; J3480; J3490; J7050; J7070; J7620; Q9967